=== PATIENT | female | born 1945 | race Caucasian/White ===

== ENCOUNTER 2020-04-14 20:11 | Inpatient (IN) | payer OTHER, SELFPAY ==
[~2020-04-14] VITALS: Ht 162.6 cm; Wt 63.5 kg
[2020-04-14 20:11] VITALS: BP_SYST 161
[2020-04-14] MEDS ORDERED: cefTRIAXone 1 GM IVPB PREMIX 50 ML IV ONE (20:30)
[2020-04-14] MEDS ORDERED: AZITHROMYCIN 500 MG in NS 250 ML IV ONE (20:30)
[2020-04-14] MEDS ORDERED: DEXAMETHASONE SOD PHOSPHATE 10 MG/ML VIAL IM ONE (20:30)
[2020-04-14] MEDS ORDERED: IPRATROPIUM/ALBUTEROL SULFATE 3 ML AMPUL.NEB (DUONEB) INH ONE (20:30)
[2020-04-14 20:50] LABS: BASOPHILS % (AUTO) 0.1 % (0.0-2.0); EOSINOPHILS % (AUTO) 0.2 % (0.0-4.0); HEMATOCRIT 41.3 % (36-48); HEMOGLOBIN 13.8 g/dL (12.0-16.0); LYMPHOCYTES # (AUTO) 1.4 K/uL (1.0-5.5); LYMPHOCYTES % (AUTO) 12.3 % (20.5-51.5); MEAN CORPUSCULAR HEMOGLOBIN 30 pg (27-31); MEAN CORPUSCULAR HGB CONC 33 % (32-36); MEAN CORPUSCULAR VOLUME 89 fL (79.0-98.0); MONOCYTES # (AUTO) 0.9 K/uL (0.0-1.0); MONOCYTES % (AUTO) 8.1 % (1.7-9.3); NEUTROPHILS # (AUTO) 8.9 K/uL (1.8-7.7); NEUTROPHILS % (AUTO) 79.3 % (40.0-70.0); PLATELET COUNT (AUTO) 532 K/uL (130-430); RED BLOOD CELL COUNT(AUTO) 4.66 MIL/uL (4.2-6.2); RED CELL DISTRIBUTION WIDTH 13.7 % (9.0-15.0); WHITE BLOOD COUNT (AUTO) 11.3 K/uL (4.8-10.8)
[2020-04-14] MEDS ORDERED: AZITHROMYCIN 500 MG/VIAL (ZITHROMAX) IV ONE (20:54)
[2020-04-14 20:59] LABS: ANION GAP 12 (5-15); CALCIUM 9.7 mg/dL (8.4-11.0); CHLORIDE 98 mmol/L (98-107); CREATININE 0.89 mg/dL (0.55-1.30); GLUCOSE 290 mg/dL (70-99); POTASSIUM 4.2 mmol/L (3.5-5.1); SODIUM SERUM 136 mmol/L (136-145); UREA NITROGEN, BLOOD 20 mg/dL (8-21)
[2020-04-14 21:05] LABS: FIBRINOGEN > 800 mg/dL (200-400)
[2020-04-14 21:10] LABS: ALANINE AMINOTRANSFERASE 563 U/L (12-78); ALBUMIN 2.5 g/dL (3.4-4.8); ASPARTATE AMINOTRANSFERASE 79 U/L (10-37); LACTATE DEHYDROGENASE 510 U/L (81-234); TOTAL BILIRUBIN 0.9 mg/dL (0.0-1.0)
[2020-04-14] MEDS ORDERED: NACL 0.9% 1,000 ML IV ONE (21:15)
[2020-04-14] MEDS ORDERED: DEXAMETHASONE SOD PHOSPHATE 10 MG/ML VIAL ONE (21:35)
[2020-04-14 21:36] LABS: C-REACTIVE PROTEIN QUANT 21.5 mg/dL (0-0.5)
[2020-04-14] MEDS ORDERED: METOPROLOL TARTRATE 5 MG/5 ML VIAL ONE (21:51)
[2020-04-14] MEDS ORDERED: IOHEXOL 350 mgI/mL, 150 ML INFUS..BTL IV ONE (21:52)
[2020-04-14] MEDS ORDERED: METOPROLOL TARTRATE 5 MG/5 ML VIAL IVP ONE (22:00)
[2020-04-14] MEDS ORDERED: KCL 20 mEq in 0.45% NS 1000 mL 1,000 ML IV ONE (23:57)
[2020-04-15] VITALS (22 sets, daily range): BP systolic 109–182
[2020-04-15] MEDS: KCL 20 mEq in 0.45% NS 1000 mL 1,000 ML IV SCH ×3 (00:05→23:40)
[2020-04-15] MEDS: DEXAMETHASONE SOD PHOSPHATE 10 MG/ML VIAL IVP SCH (00:30)
[2020-04-15] MEDS: INSULIN REGULAR, HUMAN 100 UNITS/ML, 10 ML VIAL (humuLIN R) SUBCUT PRN ×3 (01:19→18:37)
[2020-04-15] MEDS ORDERED: ENOXAPARIN SODIUM 40 MG/0.4 ML SYRINGE ONE (01:26)
[2020-04-15] MEDS: ENOXAPARIN SODIUM 40 MG/0.4 ML SYRINGE SUBCUT SCH ×3 (01:28→20:27)
[2020-04-15] MEDS ORDERED: cloNIDine HCL 0.1 MG TABLET PO PRN (01:30)
[2020-04-15] MEDS ORDERED: cloNIDine HCL 0.1 MG TABLET ONE (01:38)
[2020-04-15] MEDS: amLODIPine BESYLATE 10 MG TABLET PO SCH ×2 (01:38→09:00)
[2020-04-15] MEDS ORDERED: amLODIPine BESYLATE 10 MG TABLET ONE (01:39)
[2020-04-15] MEDS ORDERED: LORazepam 2 MG/ML VIAL ONE (03:19)
[2020-04-15] MEDS: LORazepam 2 MG/ML VIAL IVP PRN ×2 (07:41→21:53)
[2020-04-15] MEDS: CHOLECALCIFEROL (VITAMIN D3) 5,000 UNIT TABLET PO SCH (09:00)
[2020-04-15] MEDS: FAMOTIDINE 20 MG TABLET PO SCH ×2 (09:00→20:25)
[2020-04-15] MEDS: ASCORBIC ACID 500 MG TABLET PO SCH ×2 (09:00→20:23)
[2020-04-15 17:36] LABS: BASOPHILS % (AUTO) 0.1 % (0.0-2.0); HEMATOCRIT 35.4 % (36-48); HEMOGLOBIN 11.4 g/dL (12.0-16.0); LYMPHOCYTES % (AUTO) 7.2 % (20.5-51.5); MEAN CORPUSCULAR HEMOGLOBIN 29 pg (27-31); MEAN CORPUSCULAR HGB CONC 32 % (32-36); MEAN CORPUSCULAR VOLUME 89 fL (79.0-98.0); MONOCYTES # (AUTO) 1.8 K/uL (0.0-1.0); MONOCYTES % (AUTO) 12.1 % (1.7-9.3); NEUTROPHILS # (AUTO) 11.7 K/uL (1.8-7.7); NEUTROPHILS % (AUTO) 80.6 % (40.0-70.0); PLATELET COUNT (AUTO) 499 K/uL (130-430); RED BLOOD CELL COUNT(AUTO) 3.98 MIL/uL (4.2-6.2); RED CELL DISTRIBUTION WIDTH 13.4 % (9.0-15.0); WHITE BLOOD COUNT (AUTO) 14.5 K/uL (4.8-10.8)
[2020-04-15 18:02] LABS: ANION GAP 20 (5-15); CALCIUM 8.3 mg/dL (8.4-11.0); CHLORIDE 98 mmol/L (98-107); CREATININE 0.77 mg/dL (0.55-1.30); GLUCOSE 270 mg/dL (70-99); SODIUM SERUM 137 mmol/L (136-145); UREA NITROGEN, BLOOD 27 mg/dL (8-21)
[2020-04-15 18:08] LABS: ALANINE AMINOTRANSFERASE 387 U/L (12-78); ALBUMIN 2.2 g/dL (3.4-4.8); ASPARTATE AMINOTRANSFERASE 52 U/L (10-37); TOTAL BILIRUBIN 0.8 mg/dL (0.0-1.0)
[2020-04-15] MEDS: cefTRIAXone 1 GM in D5W 50 ML IV SCH (20:36)
[2020-04-15] MEDS: AZITHROMYCIN 500 MG in NS 250 ML IV SCH (21:45)
[2020-04-16] VITALS (23 sets, daily range): BP systolic 109–165
[2020-04-16] MEDS: INSULIN REGULAR, HUMAN 100 UNITS/ML, 10 ML VIAL (humuLIN R) SUBCUT PRN ×5 (00:31→23:31)
[2020-04-16] MEDS: DEXAMETHASONE SOD PHOSPHATE 10 MG/ML VIAL IVP SCH ×2 (00:50→23:31)
[2020-04-16] MEDS: LORazepam 2 MG/ML VIAL IVP PRN ×3 (05:34→22:57)
[2020-04-16 06:50] LABS: BASOPHILS % (AUTO) 0.1 % (0.0-2.0); EOSINOPHILS % (AUTO) 0.1 % (0.0-4.0); HEMATOCRIT 36.1 % (36-48); LYMPHOCYTES % (AUTO) 6.5 % (20.5-51.5); MEAN CORPUSCULAR HEMOGLOBIN 29 pg (27-31); MEAN CORPUSCULAR HGB CONC 33 % (32-36); MEAN CORPUSCULAR VOLUME 88 fL (79.0-98.0); MONOCYTES # (AUTO) 1.5 K/uL (0.0-1.0); MONOCYTES % (AUTO) 9.8 % (1.7-9.3); NEUTROPHILS # (AUTO) 12.9 K/uL (1.8-7.7); NEUTROPHILS % (AUTO) 83.5 % (40.0-70.0); PLATELET COUNT (AUTO) 507 K/uL (130-430); RED BLOOD CELL COUNT(AUTO) 4.08 MIL/uL (4.2-6.2); RED CELL DISTRIBUTION WIDTH 13.4 % (9.0-15.0); WHITE BLOOD COUNT (AUTO) 15.4 K/uL (4.8-10.8)
[2020-04-16 07:12] LABS: ANION GAP 12 (5-15); CALCIUM 8.7 mg/dL (8.4-11.0); CHLORIDE 101 mmol/L (98-107); CREATININE 0.74 mg/dL (0.55-1.30); GLUCOSE 163 mg/dL (70-99); SODIUM SERUM 137 mmol/L (136-145); UREA NITROGEN, BLOOD 20 mg/dL (8-21)
[2020-04-16] MEDS: FAMOTIDINE 20 MG TABLET PO SCH ×2 (09:34→20:47)
[2020-04-16] MEDS: KCL 20 mEq in 0.45% NS 1000 mL 1,000 ML IV SCH ×2 (09:34→20:30)
[2020-04-16] MEDS: amLODIPine BESYLATE 10 MG TABLET PO SCH (09:35)
[2020-04-16] MEDS: ASCORBIC ACID 500 MG TABLET PO SCH ×2 (09:35→20:47)
[2020-04-16] MEDS: CHOLECALCIFEROL (VITAMIN D3) 5,000 UNIT TABLET PO SCH (09:37)
[2020-04-16] MEDS: ENOXAPARIN SODIUM 40 MG/0.4 ML SYRINGE SUBCUT SCH ×2 (09:40→20:48)
[2020-04-16] MEDS: AZITHROMYCIN 500 MG in NS 250 ML IV SCH (21:00)
[2020-04-16] MEDS: cefTRIAXone 1 GM in D5W 50 ML IV SCH (21:00)
[2020-04-16] MEDS ORDERED: AZITHROMYCIN 500 MG/VIAL (ZITHROMAX) IV ONE (21:12)
[2020-04-16] MEDS ORDERED: cefTRIAXone 1 GM IVPB PREMIX 50 ML IV ONE (21:12)
[2020-04-17] VITALS (22 sets, daily range): BP systolic 124–153
[2020-04-17] MEDS: KCL 20 mEq in 0.45% NS 1000 mL 1,000 ML IV SCH ×3 (00:16→20:45)
[2020-04-17] MEDS: INSULIN REGULAR, HUMAN 100 UNITS/ML, 10 ML VIAL (humuLIN R) SUBCUT PRN ×4 (05:21→23:21)
[2020-04-17 06:44] LABS: HEMATOCRIT 33.8 % (36-48); HEMOGLOBIN 11.2 g/dL (12.0-16.0); LYMPHOCYTES # (AUTO) 0.4 K/uL (1.0-5.5); LYMPHOCYTES % (AUTO) 2.9 % (20.5-51.5); MEAN CORPUSCULAR HEMOGLOBIN 29 pg (27-31); MEAN CORPUSCULAR HGB CONC 33 % (32-36); MEAN CORPUSCULAR VOLUME 88 fL (79.0-98.0); MONOCYTES # (AUTO) 0.7 K/uL (0.0-1.0); MONOCYTES % (AUTO) 5.4 % (1.7-9.3); NEUTROPHILS # (AUTO) 11.6 K/uL (1.8-7.7); NEUTROPHILS % (AUTO) 91.7 % (40.0-70.0); PLATELET COUNT (AUTO) 508 K/uL (130-430); RED BLOOD CELL COUNT(AUTO) 3.85 MIL/uL (4.2-6.2); RED CELL DISTRIBUTION WIDTH 13.4 % (9.0-15.0); WHITE BLOOD COUNT (AUTO) 12.7 K/uL (4.8-10.8)
[2020-04-17 07:11] LABS: ALANINE AMINOTRANSFERASE 239 U/L (12-78); ANION GAP 14 (5-15); ASPARTATE AMINOTRANSFERASE 50 U/L (10-37); CHLORIDE 103 mmol/L (98-107); CREATININE 0.57 mg/dL (0.55-1.30); GLUCOSE 180 mg/dL (70-99); POTASSIUM 4.1 mmol/L (3.5-5.1); SODIUM SERUM 138 mmol/L (136-145); TOTAL BILIRUBIN 0.5 mg/dL (0.0-1.0); UREA NITROGEN, BLOOD 14 mg/dL (8-21)
[2020-04-17] MEDS: amLODIPine BESYLATE 10 MG TABLET PO SCH (09:32)
[2020-04-17] MEDS: ASCORBIC ACID 500 MG TABLET PO SCH ×2 (09:32→20:45)
[2020-04-17] MEDS: CHOLECALCIFEROL (VITAMIN D3) 5,000 UNIT TABLET PO SCH (09:32)
[2020-04-17] MEDS: FAMOTIDINE 20 MG TABLET PO SCH ×2 (09:33→20:45)
[2020-04-17] MEDS: ENOXAPARIN SODIUM 40 MG/0.4 ML SYRINGE SUBCUT SCH ×2 (10:35→20:46)
[2020-04-17] MEDS ORDERED: IVERMECTIN 3 MG TABLET PO ONE (12:00)
[2020-04-17] MEDS: AZITHROMYCIN 500 MG in NS 250 ML IV SCH (20:43)
[2020-04-17] MEDS: cefTRIAXone 1 GM in D5W 50 ML IV SCH (20:43)
[2020-04-17] MEDS: LORazepam 2 MG/ML VIAL IVP PRN (22:31)
[2020-04-17] MEDS: DEXAMETHASONE SOD PHOSPHATE 10 MG/ML VIAL IVP SCH (23:20)
[2020-04-18] VITALS (18 sets, daily range): BP systolic 122–164
[2020-04-18] MEDS: ASCORBIC ACID 500 MG TABLET PO SCH ×2 (08:16→20:18)
[2020-04-18] MEDS: CHOLECALCIFEROL (VITAMIN D3) 5,000 UNIT TABLET PO SCH (08:16)
[2020-04-18] MEDS: amLODIPine BESYLATE 10 MG TABLET PO SCH (08:16)
[2020-04-18] MEDS: FAMOTIDINE 20 MG TABLET PO SCH ×2 (08:16→20:18)
[2020-04-18] MEDS: ENOXAPARIN SODIUM 40 MG/0.4 ML SYRINGE SUBCUT SCH ×2 (08:17→20:19)
[2020-04-18] MEDS: INSULIN REGULAR, HUMAN 100 UNITS/ML, 10 ML VIAL (humuLIN R) SUBCUT PRN ×3 (11:31→23:26)
[2020-04-18] MEDS ORDERED: IVERMECTIN 3 MG TABLET PO ONE (14:00)
[2020-04-18] MEDS: KCL 20 mEq in 0.45% NS 1000 mL 1,000 ML IV SCH ×2 (14:59→18:30)
[2020-04-18] MEDS: AZITHROMYCIN 500 MG in NS 250 ML IV SCH (20:18)
[2020-04-18] MEDS: cefTRIAXone 1 GM in D5W 50 ML IV SCH (20:18)
[2020-04-18] MEDS: DEXAMETHASONE SOD PHOSPHATE 10 MG/ML VIAL IVP SCH (23:24)
[2020-04-19] VITALS (21 sets, daily range): BP systolic 117–162
[2020-04-19] MEDS: LORazepam 2 MG/ML VIAL IVP PRN ×2 (03:53→21:00)
[2020-04-19] MEDS: KCL 20 mEq in 0.45% NS 1000 mL 1,000 ML IV SCH ×3 (03:53→23:03)
[2020-04-19] MEDS: FAMOTIDINE 20 MG TABLET PO SCH ×2 (08:49→20:22)
[2020-04-19] MEDS: CHOLECALCIFEROL (VITAMIN D3) 5,000 UNIT TABLET PO SCH (08:49)
[2020-04-19] MEDS: amLODIPine BESYLATE 10 MG TABLET PO SCH (08:49)
[2020-04-19] MEDS: ASCORBIC ACID 500 MG TABLET PO SCH ×2 (08:49→20:22)
[2020-04-19] MEDS: ENOXAPARIN SODIUM 40 MG/0.4 ML SYRINGE SUBCUT SCH ×2 (09:00→20:23)
[2020-04-19] MEDS: INSULIN REGULAR, HUMAN 100 UNITS/ML, 10 ML VIAL (humuLIN R) SUBCUT PRN ×2 (11:58→23:04)
[2020-04-19] MEDS: cefTRIAXone 1 GM in D5W 50 ML IV SCH (20:22)
[2020-04-19] MEDS: AZITHROMYCIN 500 MG in NS 250 ML IV SCH (20:22)
[2020-04-19] MEDS ORDERED: *TPN PER PHARMACY XX PRN (21:00)
[2020-04-19 21:46] LABS: INR 1.1 (0.8-1.2); PROTHROMBIN TIME 11.1 SECS (9.5-12.5)
[2020-04-20] VITALS (25 sets, daily range): BP systolic 111–150
[2020-04-20] MEDS: DEXAMETHASONE SOD PHOSPHATE 10 MG/ML VIAL IVP SCH (00:30)
[2020-04-20] MEDS: LORazepam 2 MG/ML VIAL IVP PRN ×5 (01:00→22:15)
[2020-04-20] MEDS: INSULIN REGULAR, HUMAN 100 UNITS/ML, 10 ML VIAL (humuLIN R) SUBCUT PRN ×2 (05:25→23:19)
[2020-04-20 06:34] LABS: BASOPHILS % (AUTO) 0.2 % (0.0-2.0); HEMATOCRIT 34.4 % (36-48); HEMOGLOBIN 11.5 g/dL (12.0-16.0); LYMPHOCYTES # (AUTO) 0.4 K/uL (1.0-5.5); LYMPHOCYTES % (AUTO) 1.9 % (20.5-51.5); MEAN CORPUSCULAR HEMOGLOBIN 29 pg (27-31); MEAN CORPUSCULAR HGB CONC 34 % (32-36); MEAN CORPUSCULAR VOLUME 87 fL (79.0-98.0); MONOCYTES # (AUTO) 1.5 K/uL (0.0-1.0); MONOCYTES % (AUTO) 7.4 % (1.7-9.3); NEUTROPHILS # (AUTO) 17.7 K/uL (1.8-7.7); NEUTROPHILS % (AUTO) 90.5 % (40.0-70.0); PLATELET COUNT (AUTO) 648 K/uL (130-430); RED BLOOD CELL COUNT(AUTO) 3.96 MIL/uL (4.2-6.2); RED CELL DISTRIBUTION WIDTH 13.4 % (9.0-15.0); WHITE BLOOD COUNT (AUTO) 19.6 K/uL (4.8-10.8)
[2020-04-20 06:46] LABS: ALANINE AMINOTRANSFERASE 167 U/L (12-78); ALBUMIN 2.2 g/dL (3.4-4.8); ANION GAP 12 (5-15); ASPARTATE AMINOTRANSFERASE 50 U/L (10-37); CALCIUM 8.2 mg/dL (8.4-11.0); CHLORIDE 104 mmol/L (98-107); CREATININE 0.65 mg/dL (0.55-1.30); GLUCOSE 189 mg/dL (70-99); POTASSIUM 4.6 mmol/L (3.5-5.1); SODIUM SERUM 139 mmol/L (136-145); TOTAL BILIRUBIN 0.7 mg/dL (0.0-1.0); UREA NITROGEN, BLOOD 11 mg/dL (8-21)
[2020-04-20] MEDS: FAMOTIDINE 20 MG TABLET PO SCH ×2 (09:00→20:07)
[2020-04-20] MEDS: CHOLECALCIFEROL (VITAMIN D3) 5,000 UNIT TABLET PO SCH (09:00)
[2020-04-20] MEDS: amLODIPine BESYLATE 10 MG TABLET PO SCH (09:00)
[2020-04-20] MEDS: ASCORBIC ACID 500 MG TABLET PO SCH ×2 (09:00→20:07)
[2020-04-20] MEDS: KCL 20 mEq in 0.45% NS 1000 mL 1,000 ML IV SCH ×2 (09:04→20:06)
[2020-04-20] MEDS: ENOXAPARIN SODIUM 40 MG/0.4 ML SYRINGE SUBCUT SCH ×2 (09:16→20:08)
[2020-04-20 09:18] LABS: TRIGLYCERIDES 115 mg/dL (30-150)
[2020-04-20] MEDS ORDERED: IVERMECTIN 3 MG TABLET PO ONE ×2 (12:15→18:00)
[2020-04-20] MEDS ORDERED: BARICITINIB -Non-Formulary 2 MG TABLET PO SCH (13:00)
[2020-04-20] MEDS ORDERED: BARICITINIB -Non-Formulary 2 MG TABLET PO ONE (18:00)
[2020-04-20] MEDS: FAT EMULSIONS 250 ML IV SCH (19:58)
[2020-04-20] MEDS: cefTRIAXone 1 GM in D5W 50 ML IV SCH (20:07)
[2020-04-20] MEDS: methylPREDNISolone SOD SUCC 40 MG/ML VIAL IVP SCH (20:07)
[2020-04-20] MEDS ORDERED: NA PHOS IV SCH ×9 (21:00)
[2020-04-20] MEDS ORDERED: TPN CENTRAL IV SCH ×9 (21:00)
[2020-04-20] MEDS ORDERED: [UNRECOGNIZED DRUG - OTHER] IV SCH ×9 (21:00)
[2020-04-20] MEDS ORDERED: POTASSIUM ACETATE IV SCH ×9 (21:00)
[2020-04-21] VITALS (24 sets, daily range): BP systolic 112–182
[2020-04-21] MEDS: LORazepam 2 MG/ML VIAL IVP PRN ×2 (02:15→22:37)
[2020-04-21] MEDS: INSULIN REGULAR, HUMAN 100 UNITS/ML, 10 ML VIAL (humuLIN R) SUBCUT PRN ×3 (05:18→17:27)
[2020-04-21 07:11] LABS: ALANINE AMINOTRANSFERASE 136 U/L (12-78); ALBUMIN 2.3 g/dL (3.4-4.8); ANION GAP 12 (5-15); CALCIUM 8.2 mg/dL (8.4-11.0); CHLORIDE 102 mmol/L (98-107); CREATININE 0.66 mg/dL (0.55-1.30); GLUCOSE 309 mg/dL (70-99); PHOSPHORUS 1.7 mg/dL (2.7-4.5); POTASSIUM 3.9 mmol/L (3.5-5.1); SODIUM SERUM 138 mmol/L (136-145); TOTAL BILIRUBIN 0.5 mg/dL (0.0-1.0); UREA NITROGEN, BLOOD 14 mg/dL (8-21)
[2020-04-21 07:15] LABS: ASPARTATE AMINOTRANSFERASE 23 U/L (10-37)
[2020-04-21] MEDS: ASCORBIC ACID 500 MG TABLET PO SCH ×2 (08:55→20:55)
[2020-04-21] MEDS: FAMOTIDINE 20 MG TABLET PO SCH ×2 (08:55→20:55)
[2020-04-21] MEDS: amLODIPine BESYLATE 10 MG TABLET PO SCH (08:56)
[2020-04-21] MEDS: CHOLECALCIFEROL (VITAMIN D3) 5,000 UNIT TABLET PO SCH (08:56)
[2020-04-21] MEDS: methylPREDNISolone SOD SUCC 40 MG/ML VIAL IVP SCH ×2 (08:57→20:52)
[2020-04-21] MEDS: ENOXAPARIN SODIUM 40 MG/0.4 ML SYRINGE SUBCUT SCH ×2 (09:02→20:58)
[2020-04-21] MEDS: BARICITINIB -Non-Formulary 2 MG TABLET PO SCH (09:04)
[2020-04-21] MEDS ORDERED: IVERMECTIN 3 MG TABLET PO ONE (14:00)
[2020-04-21] MEDS: PIPERACILLIN/TAZO 4.5GM/DEX-IS 100 ML IV SCH ×2 (14:39→23:15)
[2020-04-21] MEDS: KCL 20 mEq in 0.45% NS 1000 mL 1,000 ML IV SCH (17:00)
[2020-04-21] MEDS ORDERED: [UNRECOGNIZED DRUG - OTHER] IV SCH ×11 (21:00)
[2020-04-21] MEDS ORDERED: NA PHOS IV SCH ×11 (21:00)
[2020-04-21] MEDS ORDERED: TPN CENTRAL IV SCH ×11 (21:00)
[2020-04-21] MEDS ORDERED: POTASSIUM ACETATE IV SCH ×11 (21:00)
[2020-04-21] MEDS: FAT EMULSIONS 250 ML IV SCH (21:13)
[2020-04-22] VITALS (24 sets, daily range): BP systolic 120–198
[2020-04-22] MEDS: DILTIAZEM HCL 25 MG/5 ML VIAL IVP PRN ×4 (00:02→20:09)
[2020-04-22] MEDS: PIPERACILLIN/TAZO 4.5GM/DEX-IS 100 ML IV SCH ×3 (06:20→22:03)
[2020-04-22 06:40] LABS: BASOPHILS # (AUTO) 0.1 K/uL (0.0-0.2); BASOPHILS % (AUTO) 0.2 % (0.0-2.0); HEMATOCRIT 39.1 % (36-48); HEMOGLOBIN 13.1 g/dL (12.0-16.0); LYMPHOCYTES # (AUTO) 0.3 K/uL (1.0-5.5); LYMPHOCYTES % (AUTO) 1.2 % (20.5-51.5); MEAN CORPUSCULAR HEMOGLOBIN 29 pg (27-31); MEAN CORPUSCULAR HGB CONC 34 % (32-36); MEAN CORPUSCULAR VOLUME 88 fL (79.0-98.0); MONOCYTES % (AUTO) 10.8 % (1.7-9.3); NEUTROPHILS % (AUTO) 87.8 % (40.0-70.0); PLATELET COUNT (AUTO) 653 K/uL (130-430); RED BLOOD CELL COUNT(AUTO) 4.46 MIL/uL (4.2-6.2); RED CELL DISTRIBUTION WIDTH 13.8 % (9.0-15.0); WHITE BLOOD COUNT (AUTO) 27.4 K/uL (4.8-10.8)
[2020-04-22] MEDS: INSULIN REGULAR, HUMAN 100 UNITS/ML, 10 ML VIAL (humuLIN R) SUBCUT PRN ×5 (06:40→23:13)
[2020-04-22] MEDS: LORazepam 2 MG/ML VIAL IVP PRN ×4 (08:03→23:57)
[2020-04-22 08:28] LABS: ALANINE AMINOTRANSFERASE 130 U/L (12-78); ALBUMIN 2.5 g/dL (3.4-4.8); ANION GAP 14 (5-15); ASPARTATE AMINOTRANSFERASE 25 U/L (10-37); CHLORIDE 103 mmol/L (98-107); CREATININE 0.83 mg/dL (0.55-1.30); GLUCOSE 376 mg/dL (70-99); POTASSIUM 3.8 mmol/L (3.5-5.1); SODIUM SERUM 141 mmol/L (136-145); TOTAL BILIRUBIN 0.7 mg/dL (0.0-1.0); UREA NITROGEN, BLOOD 14 mg/dL (8-21)
[2020-04-22 08:55] LABS: TRIGLYCERIDES 155 mg/dL (30-150)
[2020-04-22] MEDS: ASCORBIC ACID 500 MG TABLET PO SCH ×2 (09:00→21:00)
[2020-04-22] MEDS: CHOLECALCIFEROL (VITAMIN D3) 5,000 UNIT TABLET PO SCH (09:00)
[2020-04-22] MEDS: BARICITINIB -Non-Formulary 2 MG TABLET PO SCH (09:00)
[2020-04-22] MEDS: FAMOTIDINE 20 MG TABLET PO SCH ×2 (09:00→21:00)
[2020-04-22] MEDS: amLODIPine BESYLATE 10 MG TABLET PO SCH (09:00)
[2020-04-22] MEDS: methylPREDNISolone SOD SUCC 40 MG/ML VIAL IVP SCH ×2 (09:45→21:02)
[2020-04-22] MEDS: ENOXAPARIN SODIUM 40 MG/0.4 ML SYRINGE SUBCUT SCH ×2 (09:45→20:59)
[2020-04-22] MEDS: KCL 20 mEq in 0.45% NS 1000 mL 1,000 ML IV SCH (13:09)
[2020-04-22] MEDS ORDERED: COMMUNICATION ORDER XX ONE (14:00)
[2020-04-22] MEDS: hydrALAZINE HCL 20 MG/ML VIAL IVP PRN ×2 (14:55→23:09)
[2020-04-22] MEDS ORDERED: INSULIN REGULAR, HUMAN 100 UNITS/ML, 10 ML VIAL IV ONE (17:30)
[2020-04-22] MEDS: INSULIN GLARGINE 100 UNITS/ML 10 ML VIAL SUBCUT SCH (20:36)
[2020-04-22] MEDS: FAT EMULSIONS 250 ML IV SCH ×2 (20:54→23:24)
[2020-04-22] MEDS ORDERED: NA PHOS IV SCH ×10 (21:00)
[2020-04-22] MEDS ORDERED: [UNRECOGNIZED DRUG - OTHER] IV SCH ×10 (21:00)
[2020-04-22] MEDS ORDERED: TPN CENTRAL IV SCH ×10 (21:00)
[2020-04-22] MEDS ORDERED: POTASSIUM ACETATE IV SCH ×10 (21:00)
[2020-04-22] MEDS ORDERED: PIPERACILLIN/TAZOBACTAM 4.5 GM/VIAL (ZOSYN) IV ONE (21:27)
[2020-04-23] VITALS (25 sets, daily range): BP systolic 102–192
[2020-04-23] MEDS: DILTIAZEM HCL 25 MG/5 ML VIAL IVP PRN ×2 (02:31→16:44)
[2020-04-23 04:43] LABS: ALANINE AMINOTRANSFERASE 90 U/L (12-78); ALBUMIN 2.3 g/dL (3.4-4.8); ANION GAP 12 (5-15); ASPARTATE AMINOTRANSFERASE 18 U/L (10-37); CALCIUM 9.2 mg/dL (8.4-11.0); CHLORIDE 106 mmol/L (98-107); CREATININE 0.83 mg/dL (0.55-1.30); PHOSPHORUS 2.5 mg/dL (2.7-4.5); POTASSIUM 3.6 mmol/L (3.5-5.1); SODIUM SERUM 145 mmol/L (136-145); TOTAL BILIRUBIN 0.5 mg/dL (0.0-1.0); UREA NITROGEN, BLOOD 21 mg/dL (8-21)
[2020-04-23 04:46] LABS: GLUCOSE 457 mg/dL (70-99)
[2020-04-23] MEDS: INSULIN REGULAR, HUMAN 100 UNITS/ML, 10 ML VIAL (humuLIN R) SUBCUT PRN ×4 (05:33→23:29)
[2020-04-23] MEDS: PIPERACILLIN/TAZO 4.5GM/DEX-IS 100 ML IV SCH ×3 (05:44→21:01)
[2020-04-23] MEDS: KCL 20 mEq in 0.45% NS 1000 mL 1,000 ML IV SCH (05:45)
[2020-04-23] MEDS: hydrALAZINE HCL 20 MG/ML VIAL IVP PRN ×3 (06:06→19:52)
[2020-04-23] MEDS ORDERED: INSULIN REGULAR, HUMAN 100 UNITS/ML, 10 ML VIAL IVP ONE (07:15)
[2020-04-23] MEDS ORDERED: INSULIN REGULAR, HUMAN 100 UNITS/ML, 10 ML VIAL IVP PRN (07:30)
[2020-04-23] MEDS: ASCORBIC ACID 500 MG TABLET PO SCH ×2 (09:11→20:34)
[2020-04-23] MEDS: methylPREDNISolone SOD SUCC 40 MG/ML VIAL IVP SCH ×2 (09:11→20:48)
[2020-04-23] MEDS: CHOLECALCIFEROL (VITAMIN D3) 5,000 UNIT TABLET PO SCH (09:13)
[2020-04-23] MEDS: FAMOTIDINE 20 MG TABLET PO SCH ×2 (09:13→20:34)
[2020-04-23] MEDS: amLODIPine BESYLATE 10 MG TABLET PO SCH (09:13)
[2020-04-23] MEDS: ENOXAPARIN SODIUM 40 MG/0.4 ML SYRINGE SUBCUT SCH ×2 (09:16→20:54)
[2020-04-23] MEDS: BARICITINIB -Non-Formulary 2 MG TABLET PO SCH (09:17)
[2020-04-23] MEDS: INSULIN GLARGINE 100 UNITS/ML 10 ML VIAL SUBCUT SCH ×2 (09:23→20:54)
[2020-04-23] MEDS: LORazepam 2 MG/ML VIAL IVP PRN ×2 (16:31→19:52)
[2020-04-23] MEDS: QUEtiapine FUMARATE 25 MG TABLET PO SCH ×2 (19:02→20:34)
[2020-04-23] MEDS ORDERED: DILTIAZEM HCL 125 MG/25 ML VIAL IV ONE (19:22)
[2020-04-23] MEDS: FAT EMULSIONS 250 ML IV SCH (20:55)
[2020-04-23] MEDS ORDERED: [UNRECOGNIZED DRUG - OTHER] IV SCH ×8 (21:00)
[2020-04-23] MEDS ORDERED: INSULIN REGULAR IV SCH ×8 (21:00)
[2020-04-23] MEDS ORDERED: TPN CENTRAL IV SCH ×8 (21:00)
[2020-04-23] MEDS ORDERED: TRACE ELEMENTS IV SCH ×8 (21:00)
[2020-04-23] MEDS ORDERED: K PHOS IV SCH ×8 (21:00)
[2020-04-24] VITALS (24 sets, daily range): BP systolic 93–148
[2020-04-24] MEDS: LORazepam 2 MG/ML VIAL IVP PRN ×4 (00:07→21:29)
[2020-04-24] MEDS ORDERED: DILTIAZEM HCL 25 MG/5 ML VIAL ONE (01:25)
[2020-04-24] MEDS: KCL 20 mEq in 0.45% NS 1000 mL 1,000 ML IV SCH (04:11)
[2020-04-24] MEDS: PIPERACILLIN/TAZO 4.5GM/DEX-IS 100 ML IV SCH ×3 (05:07→21:29)
[2020-04-24] MEDS: INSULIN REGULAR, HUMAN 100 UNITS/ML, 10 ML VIAL (humuLIN R) SUBCUT PRN ×4 (06:46→23:56)
[2020-04-24 06:58] LABS: BASOPHILS # (AUTO) 0.1 K/uL (0.0-0.2); BASOPHILS % (AUTO) 0.2 % (0.0-2.0); HEMATOCRIT 37.7 % (36-48); HEMOGLOBIN 12.4 g/dL (12.0-16.0); LYMPHOCYTES # (AUTO) 0.3 K/uL (1.0-5.5); LYMPHOCYTES % (AUTO) 1.1 % (20.5-51.5); MEAN CORPUSCULAR HEMOGLOBIN 29 pg (27-31); MEAN CORPUSCULAR HGB CONC 33 % (32-36); MEAN CORPUSCULAR VOLUME 89 fL (79.0-98.0); MONOCYTES # (AUTO) 2.9 K/uL (0.0-1.0); MONOCYTES % (AUTO) 11.2 % (1.7-9.3); NEUTROPHILS # (AUTO) 22.5 K/uL (1.8-7.7); NEUTROPHILS % (AUTO) 87.5 % (40.0-70.0); PLATELET COUNT (AUTO) 503 K/uL (130-430); RED BLOOD CELL COUNT(AUTO) 4.26 MIL/uL (4.2-6.2); RED CELL DISTRIBUTION WIDTH 13.8 % (9.0-15.0); WHITE BLOOD COUNT (AUTO) 25.7 K/uL (4.8-10.8)
[2020-04-24 07:15] LABS: ALANINE AMINOTRANSFERASE 77 U/L (12-78); ANION GAP 14 (5-15); ASPARTATE AMINOTRANSFERASE 28 U/L (10-37); CALCIUM 8.9 mg/dL (8.4-11.0); CHLORIDE 115 mmol/L (98-107); CREATININE 1.02 mg/dL (0.55-1.30); GLUCOSE 344 mg/dL (70-99); PHOSPHORUS 3.7 mg/dL (2.7-4.5); POTASSIUM 3.8 mmol/L (3.5-5.1); SODIUM SERUM 153 mmol/L (136-145); TOTAL BILIRUBIN 0.5 mg/dL (0.0-1.0); UREA NITROGEN, BLOOD 45 mg/dL (8-21)
[2020-04-24] MEDS: FAMOTIDINE 20 MG TABLET PO SCH ×2 (08:47→20:54)
[2020-04-24] MEDS: ASCORBIC ACID 500 MG TABLET PO SCH ×2 (08:47→20:56)
[2020-04-24] MEDS: CHOLECALCIFEROL (VITAMIN D3) 5,000 UNIT TABLET PO SCH (08:48)
[2020-04-24] MEDS: methylPREDNISolone SOD SUCC 40 MG/ML VIAL IVP SCH ×2 (08:48→20:55)
[2020-04-24] MEDS: QUEtiapine FUMARATE 25 MG TABLET PO SCH ×2 (08:48→20:54)
[2020-04-24] MEDS: ENOXAPARIN SODIUM 40 MG/0.4 ML SYRINGE SUBCUT SCH ×2 (08:51→20:56)
[2020-04-24] MEDS: INSULIN GLARGINE 100 UNITS/ML 10 ML VIAL SUBCUT SCH ×2 (08:54→21:28)
[2020-04-24] MEDS: BARICITINIB -Non-Formulary 2 MG TABLET PO SCH (08:55)
[2020-04-24] MEDS: amLODIPine BESYLATE 10 MG TABLET PO SCH (08:57)
[2020-04-24] MEDS: MICAFUNGIN SODIUM 50 MG in NS 100 ML IV SCH (16:51)
[2020-04-24] MEDS: FAT EMULSIONS 250 ML IV SCH (20:51)
[2020-04-24] MEDS ORDERED: [UNRECOGNIZED DRUG - OTHER] IV SCH ×9 (21:00)
[2020-04-24] MEDS ORDERED: TPN CENTRAL IV SCH ×9 (21:00)
[2020-04-24] MEDS ORDERED: K PHOS IV SCH ×9 (21:00)
[2020-04-24] MEDS ORDERED: POTASSIUM ACETATE IV SCH ×9 (21:00)
[2020-04-25] VITALS (23 sets, daily range): BP systolic 118–154
[2020-04-25] MEDS: LORazepam 2 MG/ML VIAL IVP PRN ×3 (00:57→17:39)
[2020-04-25] MEDS: KCL 20 mEq in 0.45% NS 1000 mL 1,000 ML IV SCH ×2 (00:57→22:00)
[2020-04-25] MEDS: PIPERACILLIN/TAZO 4.5GM/DEX-IS 100 ML IV SCH ×3 (05:54→21:04)
[2020-04-25] MEDS: INSULIN REGULAR, HUMAN 100 UNITS/ML, 10 ML VIAL (humuLIN R) SUBCUT PRN ×3 (05:55→17:51)
[2020-04-25 06:34] LABS: HEMATOCRIT 38.1 % (36-48); HEMOGLOBIN 12.4 g/dL (12.0-16.0); MEAN CORPUSCULAR HEMOGLOBIN 29 pg (27-31); MEAN CORPUSCULAR HGB CONC 33 % (32-36); MEAN CORPUSCULAR VOLUME 89 fL (79.0-98.0); PLATELET COUNT (AUTO) 416 K/uL (130-430); RED CELL DISTRIBUTION WIDTH 13.9 % (9.0-15.0); WHITE BLOOD COUNT (AUTO) 24.1 K/uL (4.8-10.8)
[2020-04-25 06:43] LABS: ALANINE AMINOTRANSFERASE 91 U/L (12-78); ANION GAP 12 (5-15); ASPARTATE AMINOTRANSFERASE 39 U/L (10-37); CHLORIDE 113 mmol/L (98-107); CREATININE 0.75 mg/dL (0.55-1.30); GLUCOSE 217 mg/dL (70-99); PHOSPHORUS 3.7 mg/dL (2.7-4.5); POTASSIUM 3.6 mmol/L (3.5-5.1); SODIUM SERUM 149 mmol/L (136-145); TOTAL BILIRUBIN 0.5 mg/dL (0.0-1.0); UREA NITROGEN, BLOOD 46 mg/dL (8-21)
[2020-04-25] MEDS: CHOLECALCIFEROL (VITAMIN D3) 5,000 UNIT TABLET PO SCH (09:00)
[2020-04-25] MEDS: BARICITINIB -Non-Formulary 2 MG TABLET PO SCH (09:00)
[2020-04-25] MEDS: ASCORBIC ACID 500 MG TABLET PO SCH ×2 (09:00→21:01)
[2020-04-25] MEDS: amLODIPine BESYLATE 10 MG TABLET PO SCH (09:00)
[2020-04-25] MEDS: FAMOTIDINE 20 MG TABLET PO SCH ×2 (09:00→21:01)
[2020-04-25] MEDS: QUEtiapine FUMARATE 25 MG TABLET PO SCH ×2 (09:00→21:01)
[2020-04-25] MEDS: INSULIN GLARGINE 100 UNITS/ML 10 ML VIAL SUBCUT SCH ×2 (09:37→21:03)
[2020-04-25] MEDS: methylPREDNISolone SOD SUCC 40 MG/ML VIAL IVP SCH ×2 (09:38→21:01)
[2020-04-25] MEDS: ENOXAPARIN SODIUM 40 MG/0.4 ML SYRINGE SUBCUT SCH ×2 (09:38→21:04)
[2020-04-25 11:01] LABS: BAND % (MANUAL) 6 % (0-6); BASOPHILS % (MANUAL) 0 % (0-2); EOSINOPHILS % (MANUAL) 0 % (0-7); LYMPHOCYTES % (MANUAL) 1 % (20-46); MONOCYTES % (MANUAL) 6 % (0-11)
[2020-04-25] MEDS: MICAFUNGIN SODIUM 50 MG in NS 100 ML IV SCH (14:00)
[2020-04-25] MEDS: FAT EMULSIONS 250 ML IV SCH (20:59)
[2020-04-25] MEDS ORDERED: POTASSIUM ACETATE IV SCH ×9 (21:00)
[2020-04-25] MEDS ORDERED: TPN CENTRAL IV SCH ×9 (21:00)
[2020-04-25] MEDS ORDERED: K PHOS IV SCH ×9 (21:00)
[2020-04-25] MEDS ORDERED: SODIUM ACETATE IV SCH ×9 (21:00)
[2020-04-25] MEDS ORDERED: [UNRECOGNIZED DRUG - OTHER] IV SCH ×9 (21:00)
[2020-04-26] VITALS (24 sets, daily range): BP systolic 79–163
[2020-04-26] MEDS: LORazepam 2 MG/ML VIAL IVP PRN (00:19)
[2020-04-26] MEDS: INSULIN REGULAR, HUMAN 100 UNITS/ML, 10 ML VIAL (humuLIN R) SUBCUT PRN ×4 (00:21→23:26)
[2020-04-26] MEDS: PIPERACILLIN/TAZO 4.5GM/DEX-IS 100 ML IV SCH ×3 (06:13→21:15)
[2020-04-26] MEDS: hydrALAZINE HCL 20 MG/ML VIAL IVP PRN (06:32)
[2020-04-26 07:02] LABS: ALANINE AMINOTRANSFERASE 64 U/L (12-78); ALBUMIN 1.8 g/dL (3.4-4.8); ANION GAP 9 (5-15); ASPARTATE AMINOTRANSFERASE 22 U/L (10-37); CALCIUM 7.8 mg/dL (8.4-11.0); CHLORIDE 113 mmol/L (98-107); GLUCOSE 243 mg/dL (70-99); PHOSPHORUS 3.1 mg/dL (2.7-4.5); POTASSIUM 4.2 mmol/L (3.5-5.1); SODIUM SERUM 147 mmol/L (136-145); TOTAL BILIRUBIN 0.4 mg/dL (0.0-1.0); UREA NITROGEN, BLOOD 37 mg/dL (8-21)
[2020-04-26] MEDS: amLODIPine BESYLATE 10 MG TABLET PO SCH (08:15)
[2020-04-26] MEDS: BARICITINIB -Non-Formulary 2 MG TABLET PO SCH (08:15)
[2020-04-26] MEDS: QUEtiapine FUMARATE 25 MG TABLET PO SCH (08:16)
[2020-04-26] MEDS: CHOLECALCIFEROL (VITAMIN D3) 5,000 UNIT TABLET PO SCH (08:16)
[2020-04-26] MEDS: ASCORBIC ACID 500 MG TABLET PO SCH (08:16)
[2020-04-26] MEDS: FAMOTIDINE 20 MG TABLET PO SCH (08:16)
[2020-04-26] MEDS: methylPREDNISolone SOD SUCC 40 MG/ML VIAL IVP SCH ×2 (08:28→20:56)
[2020-04-26] MEDS: INSULIN GLARGINE 100 UNITS/ML 10 ML VIAL SUBCUT SCH ×2 (08:29→21:10)
[2020-04-26] MEDS: ENOXAPARIN SODIUM 40 MG/0.4 ML SYRINGE SUBCUT SCH ×2 (08:30→20:59)
[2020-04-26] MEDS: MICAFUNGIN SODIUM 50 MG in NS 100 ML IV SCH (14:09)
[2020-04-26] MEDS: KCL 20 mEq in 0.45% NS 1000 mL 1,000 ML IV SCH (17:18)
[2020-04-26] MEDS: FAT EMULSIONS 250 ML IV SCH (20:47)
[2020-04-26] MEDS ORDERED: POTASSIUM ACETATE IV SCH ×9 (21:00)
[2020-04-26] MEDS ORDERED: SODIUM ACETATE IV SCH ×9 (21:00)
[2020-04-26] MEDS ORDERED: TPN CENTRAL IV SCH ×9 (21:00)
[2020-04-26] MEDS ORDERED: K PHOS IV SCH ×9 (21:00)
[2020-04-26] MEDS ORDERED: [UNRECOGNIZED DRUG - OTHER] IV SCH ×9 (21:00)
[2020-04-26] MEDS ORDERED: NACL 0.9% 500 ML IV ONE (21:15)
[2020-04-26] MEDS ORDERED: NOREPINEPHRINE 4 MG/4 ML VIAL IV ONE (22:37)
[2020-04-26] MEDS: NOREPINEPHRINE BITARTRATE 4 MG in D5W 246 ML IV PRN (23:08)
[2020-04-26] MEDS ORDERED: INSULIN REGULAR, HUMAN 100 UNITS/ML, 10 ML VIAL SUBCUT ONE (23:30)
[2020-04-27] VITALS (29 sets, daily range): BP systolic 89–165
[2020-04-27] MEDS: KCL 20 mEq in 0.45% NS 1000 mL 1,000 ML IV SCH (00:24)
[2020-04-27] MEDS ORDERED: FUROSEMIDE 40 MG/4 ML VIAL ONE (00:57)
[2020-04-27] MEDS ORDERED: FUROSEMIDE 40 MG/4 ML VIAL IVP ONE ×2 (01:00→09:15)
[2020-04-27] MEDS: PIPERACILLIN/TAZO 4.5GM/DEX-IS 100 ML IV SCH ×3 (05:14→21:31)
[2020-04-27] MEDS: INSULIN REGULAR, HUMAN 100 UNITS/ML, 10 ML VIAL (humuLIN R) SUBCUT PRN ×4 (05:16→19:00)
[2020-04-27] MEDS ORDERED: NOREPINEPHRINE 4 MG/4 ML VIAL IV ONE (05:39)
[2020-04-27] MEDS: NOREPINEPHRINE BITARTRATE 4 MG in D5W 246 ML IV PRN (06:14)
[2020-04-27 06:19] LABS: ALBUMIN 1.7 g/dL (3.4-4.8); ANION GAP 9 (5-15); CHLORIDE 105 mmol/L (98-107); CREATININE 2.25 mg/dL (0.55-1.30); SODIUM SERUM 140 mmol/L (136-145); TOTAL BILIRUBIN 0.4 mg/dL (0.0-1.0); UREA NITROGEN, BLOOD 70 mg/dL (8-21)
[2020-04-27 08:15] LABS: ALANINE AMINOTRANSFERASE 69 U/L (12-78)
[2020-04-27 08:16] LABS: ASPARTATE AMINOTRANSFERASE 44 U/L (10-37)
[2020-04-27 08:18] LABS: GLUCOSE 425 mg/dL (70-99); POTASSIUM 6.4 mmol/L (3.5-5.1)
[2020-04-27] MEDS ORDERED: INSULIN REGULAR, HUMAN 100 UNITS/ML, 10 ML VIAL IVP ONE (09:00)
[2020-04-27] MEDS ORDERED: SODIUM BICARBONATE 8.4% JECT 50 MEQ/50 ML SYRINGE IVP ONE ×3 (09:15→16:15)
[2020-04-27] MEDS ORDERED: DEXTROSE 50% JECT 50 ML DISP.SYRIN IVP ONE (09:15)
[2020-04-27] MEDS ORDERED: SODIUM POLYSTYRENE SULFONATE 15 GM/60 ML UDBTL RC ONE (09:15)
[2020-04-27] MEDS: INSULIN GLARGINE 100 UNITS/ML 10 ML VIAL SUBCUT SCH ×2 (09:30→21:30)
[2020-04-27] MEDS: ENOXAPARIN SODIUM 40 MG/0.4 ML SYRINGE SUBCUT SCH (09:33)
[2020-04-27] MEDS: methylPREDNISolone SOD SUCC 40 MG/ML VIAL IVP SCH ×2 (09:53→21:29)
[2020-04-27] MEDS ORDERED: MORPHINE 2 MG/ML INJ. SYRINGE IVP ONE (10:30)
[2020-04-27] MEDS: LORazepam 2 MG/ML VIAL IVP PRN (12:17)
[2020-04-27] MEDS ORDERED: SODIUM BICARBONATE 8.4% JECT 50 MEQ/50 ML SYRINGE ONE (13:56)
[2020-04-27] MEDS ORDERED: CALCIUM CHLORIDE 1 GM/10 ML DISP.SYRIN (14 mEq Ca++/SYR) ONE (14:01)
[2020-04-27 14:11] LABS: ALANINE AMINOTRANSFERASE 76 U/L (12-78); ALBUMIN 1.6 g/dL (3.4-4.8); ANION GAP 16 (5-15); ASPARTATE AMINOTRANSFERASE 107 U/L (10-37); CHLORIDE 105 mmol/L (98-107); CREATININE 2.91 mg/dL (0.55-1.30); GLUCOSE 276 mg/dL (70-99); POTASSIUM 4.8 mmol/L (3.5-5.1); SODIUM SERUM 143 mmol/L (136-145); TOTAL BILIRUBIN 0.5 mg/dL (0.0-1.0); UREA NITROGEN, BLOOD 84 mg/dL (8-21)
[2020-04-27 14:20] LABS: CALCIUM 7.1 mg/dL (8.4-11.0)
[2020-04-27 14:21] LABS: CALCIUM 6.7 mg/dL (8.4-11.0)
[2020-04-27] MEDS ORDERED: NALOXONE HCL 0.4 MG/ML AMP (NARCAN) IVP PRN (14:30)
[2020-04-27] MEDS ORDERED: MORPHINE I.V. DRIP 100 ML IV PRN (14:30)
[2020-04-27] MEDS: PROPOFOL DRIP 100 ML IV PRN (14:36)
[2020-04-27] MEDS: MICAFUNGIN SODIUM 50 MG in NS 100 ML IV SCH (15:35)
[2020-04-27] MEDS: DILTIAZEM HCL 25 MG/5 ML VIAL IVP PRN (15:40)
[2020-04-27] MEDS ORDERED: INSULIN REGULAR, HUMAN 100 UNITS in NS 99 ML IV PRN ×2 (16:00)
[2020-04-27] MEDS ORDERED: SODIUM BICARBONATE 8.4% VIAL 50 MEQ/50 ML VIAL ONE (16:45)
[2020-04-27] MEDS: MORPHINE 2 MG/ML INJ. SYRINGE IVP PRN (16:48)
[2020-04-27] MEDS ORDERED: ETOMIDATE 20 MG/ 10 ML VIAL (AMIDATE) ONE (17:40)
[2020-04-27] MEDS ORDERED: ROCURONIUM BROMIDE 10 MG/ML (ZEMURON) ONE (17:40)
[2020-04-27] MEDS ORDERED: COMMUNICATION ORDER XX ONE (20:30)
[2020-04-27 20:47] LABS: ANION GAP 16 (5-15); CALCIUM 7.2 mg/dL (8.4-11.0); CHLORIDE 107 mmol/L (98-107); CREATININE 3.06 mg/dL (0.55-1.30); GLUCOSE 171 mg/dL (70-99); POTASSIUM 4.6 mmol/L (3.5-5.1); SODIUM SERUM 147 mmol/L (136-145); UREA NITROGEN, BLOOD 92 mg/dL (8-21)
[2020-04-27] MEDS ORDERED: INSULIN REGULAR IV SCH ×6 (21:00)
[2020-04-27] MEDS ORDERED: [UNRECOGNIZED DRUG - OTHER] IV SCH ×6 (21:00)
[2020-04-27] MEDS ORDERED: TRACE ELEMENTS IV SCH ×6 (21:00)
[2020-04-27] MEDS ORDERED: TPN CENTRAL IV SCH ×6 (21:00)
[2020-04-27] MEDS ORDERED: SODIUM ACETATE IV SCH ×6 (21:00)
[2020-04-27] MEDS: FAT EMULSIONS 250 ML IV SCH (21:28)
[2020-04-27] MEDS: PANTOPRAZOLE SODIUM 40 MG/VIAL (PROTONIX) IVP SCH (21:29)
[2020-04-27] MEDS: METOPROLOL TARTRATE 50 MG TABLET NG SCH (21:29)
[2020-04-28] VITALS (29 sets, daily range): BP systolic 111–160
[2020-04-28] MEDS: LORazepam 2 MG/ML VIAL IVP PRN (00:14)
[2020-04-28] MEDS: PROPOFOL DRIP 100 ML IV PRN ×3 (04:00→20:02)
[2020-04-28] MEDS: PIPERACILLIN/TAZO 4.5GM/DEX-IS 100 ML IV SCH ×3 (05:35→22:27)
[2020-04-28 05:41] LABS: ALANINE AMINOTRANSFERASE 60 U/L (12-78); ALBUMIN 1.4 g/dL (3.4-4.8); ANION GAP 15 (5-15); ASPARTATE AMINOTRANSFERASE 90 U/L (10-37); CHLORIDE 105 mmol/L (98-107); CREATININE 3.76 mg/dL (0.55-1.30); GLUCOSE 81 mg/dL (70-99); POTASSIUM 3.5 mmol/L (3.5-5.1); SODIUM SERUM 146 mmol/L (136-145); TOTAL BILIRUBIN 0.5 mg/dL (0.0-1.0)
[2020-04-28 05:44] LABS: CALCIUM 6.8 mg/dL (8.4-11.0); UREA NITROGEN, BLOOD 107 mg/dL (8-21)
[2020-04-28 06:00] LABS: BASOPHILS % (AUTO) 0.1 % (0.0-2.0); EOSINOPHILS % (AUTO) 0.1 % (0.0-4.0); HEMATOCRIT 29.2 % (36-48); HEMOGLOBIN 9.6 g/dL (12.0-16.0); LYMPHOCYTES # (AUTO) 0.3 K/uL (1.0-5.5); LYMPHOCYTES % (AUTO) 0.9 % (20.5-51.5); MEAN CORPUSCULAR HEMOGLOBIN 29 pg (27-31); MEAN CORPUSCULAR HGB CONC 33 % (32-36); MEAN CORPUSCULAR VOLUME 89 fL (79.0-98.0); MONOCYTES # (AUTO) 1.5 K/uL (0.0-1.0); MONOCYTES % (AUTO) 4.9 % (1.7-9.3); PLATELET COUNT (AUTO) 173 K/uL (130-430); RED BLOOD CELL COUNT(AUTO) 3.27 MIL/uL (4.2-6.2); RED CELL DISTRIBUTION WIDTH 14.4 % (9.0-15.0)
[2020-04-28 07:22] LABS: WHITE BLOOD COUNT (AUTO) 30.8 K/uL (4.8-10.8)
[2020-04-28 08:41] LABS: PHOSPHORUS 6.1 mg/dL (2.7-4.5)
[2020-04-28] MEDS: METOPROLOL TARTRATE 50 MG TABLET NG SCH ×2 (08:46→22:27)
[2020-04-28] MEDS: PANTOPRAZOLE SODIUM 40 MG/VIAL (PROTONIX) IVP SCH ×2 (08:47→22:27)
[2020-04-28] MEDS: methylPREDNISolone SOD SUCC 40 MG/ML VIAL IVP SCH ×2 (08:47→22:27)
[2020-04-28] MEDS: INSULIN GLARGINE 100 UNITS/ML 10 ML VIAL SUBCUT SCH (11:23)
[2020-04-28] MEDS ORDERED: BUMEX 1 MG/4 ML VIAL IVP ONE (12:45)
[2020-04-28] MEDS: MICAFUNGIN SODIUM 50 MG in NS 100 ML IV SCH (13:26)
[2020-04-28] MEDS ORDERED: ACETAMINOPHEN 650 MG/20.3 ML UDC ONE (15:19)
[2020-04-28] MEDS: ACETAMINOPHEN 650 MG/20.3 ML UDC GT PRN (15:30)
[2020-04-28] MEDS ORDERED: HEPARIN SODIUM,PORCINE 5,000 UNITS/ML VIAL ONE ×2 (17:00→20:58)
[2020-04-28] MEDS ORDERED: TPN CENTRAL IV SCH ×8 (21:00)
[2020-04-28] MEDS ORDERED: TRACE ELEMENTS IV SCH ×8 (21:00)
[2020-04-28] MEDS ORDERED: POTASSIUM CHLORIDE IV SCH ×8 (21:00)
[2020-04-28] MEDS ORDERED: [UNRECOGNIZED DRUG - OTHER] IV SCH ×8 (21:00)
[2020-04-28] MEDS: FAT EMULSIONS 250 ML IV SCH (22:29)
[2020-04-29] VITALS (31 sets, daily range): BP systolic 107–145
[2020-04-29] MEDS: PROPOFOL DRIP 100 ML IV PRN ×3 (05:09→20:18)
[2020-04-29] MEDS: PIPERACILLIN/TAZO 4.5GM/DEX-IS 100 ML IV SCH ×3 (05:10→21:03)
[2020-04-29 08:54] LABS: ALANINE AMINOTRANSFERASE 51 U/L (12-78); ALBUMIN 1.2 g/dL (3.4-4.8); ANION GAP 16 (5-15); ASPARTATE AMINOTRANSFERASE 82 U/L (10-37); CHLORIDE 97 mmol/L (98-107); GLUCOSE 159 mg/dL (70-99); PHOSPHORUS 4.1 mg/dL (2.7-4.5); POTASSIUM 3.6 mmol/L (3.5-5.1); SODIUM SERUM 136 mmol/L (136-145); TOTAL BILIRUBIN 0.5 mg/dL (0.0-1.0); UREA NITROGEN, BLOOD 65 mg/dL (8-21)
[2020-04-29 09:09] LABS: CALCIUM 6.3 mg/dL (8.4-11.0)
[2020-04-29] MEDS: methylPREDNISolone SOD SUCC 40 MG/ML VIAL IVP SCH ×2 (09:25→20:46)
[2020-04-29] MEDS: PANTOPRAZOLE SODIUM 40 MG/VIAL (PROTONIX) IVP SCH ×2 (09:25→20:46)
[2020-04-29] MEDS: METOPROLOL TARTRATE 50 MG TABLET NG SCH ×2 (09:33→20:47)
[2020-04-29 09:38] LABS: TRIGLYCERIDES 124 mg/dL (30-150)
[2020-04-29] MEDS: INSULIN REGULAR, HUMAN 100 UNITS/ML, 10 ML VIAL (humuLIN R) SUBCUT PRN ×3 (11:56→23:46)
[2020-04-29] MEDS: ACETAMINOPHEN 650 MG/20.3 ML UDC GT PRN (12:32)
[2020-04-29] MEDS ORDERED: ACETAMINOPHEN 650 MG/20.3 ML UDC ONE (12:40)
[2020-04-29] MEDS ORDERED: HEPARIN SODIUM, PORCINE 10,000 UNITS/ 10 ML VIAL MC ONE ×3 (14:45→15:00)
[2020-04-29] MEDS ORDERED: HEPARIN SODIUM,PORCINE 5,000 UNITS/ML VIAL ONE (14:54)
[2020-04-29] MEDS: MICAFUNGIN SODIUM 50 MG in NS 100 ML IV SCH (16:58)
[2020-04-29] MEDS: FAT EMULSIONS 250 ML IV SCH (20:48)
[2020-04-29] MEDS ORDERED: TPN CENTRAL IV SCH ×8 (21:00)
[2020-04-29] MEDS ORDERED: [UNRECOGNIZED DRUG - OTHER] IV SCH ×8 (21:00)
[2020-04-29] MEDS ORDERED: TRACE ELEMENTS IV SCH ×8 (21:00)
[2020-04-29] MEDS ORDERED: POTASSIUM CHLORIDE IV SCH ×8 (21:00)
[2020-04-30] VITALS (29 sets, daily range): BP systolic 102–152
[2020-04-30] MEDS: PROPOFOL DRIP 100 ML IV PRN ×4 (01:53→22:09)
[2020-04-30 04:32] LABS: EOSINOPHILS # (AUTO) 0.7 K/uL (0.0-0.4); HEMATOCRIT 24.9 % (36-48); HEMOGLOBIN 8.2 g/dL (12.0-16.0); LYMPHOCYTES # (AUTO) 1.1 K/uL (1.0-5.5); LYMPHOCYTES % (AUTO) 3.2 % (20.5-51.5); MEAN CORPUSCULAR HEMOGLOBIN 29 pg (27-31); MEAN CORPUSCULAR HGB CONC 33 % (32-36); MEAN CORPUSCULAR VOLUME 87 fL (79.0-98.0); MONOCYTES # (AUTO) 1.6 K/uL (0.0-1.0); MONOCYTES % (AUTO) 4.5 % (1.7-9.3); NEUTROPHILS # (AUTO) 31.9 K/uL (1.8-7.7); NEUTROPHILS % (AUTO) 90.3 % (40.0-70.0); PLATELET COUNT (AUTO) 116 K/uL (130-430); RED BLOOD CELL COUNT(AUTO) 2.85 MIL/uL (4.2-6.2)
[2020-04-30 04:47] LABS: WHITE BLOOD COUNT (AUTO) 35.3 K/uL (4.8-10.8)
[2020-04-30 04:50] LABS: ALANINE AMINOTRANSFERASE 56 U/L (12-78); ALBUMIN 1.2 g/dL (3.4-4.8); ANION GAP 11 (5-15); ASPARTATE AMINOTRANSFERASE 57 U/L (10-37); CHLORIDE 92 mmol/L (98-107); CREATININE 2.88 mg/dL (0.55-1.30); GLUCOSE 286 mg/dL (70-99); POTASSIUM 3.5 mmol/L (3.5-5.1); SODIUM SERUM 129 mmol/L (136-145); UREA NITROGEN, BLOOD 52 mg/dL (8-21)
[2020-04-30 05:06] LABS: CALCIUM 6.4 mg/dL (8.4-11.0); TOTAL BILIRUBIN 0.5 mg/dL (0.0-1.0)
[2020-04-30 05:07] LABS: PHOSPHORUS 4.9 mg/dL (2.7-4.5)
[2020-04-30] MEDS: PIPERACILLIN/TAZO 4.5GM/DEX-IS 100 ML IV SCH ×3 (05:10→21:36)
[2020-04-30] MEDS: INSULIN REGULAR, HUMAN 100 UNITS/ML, 10 ML VIAL (humuLIN R) SUBCUT PRN ×3 (05:20→17:34)
[2020-04-30] MEDS ORDERED: ACETAMINOPHEN 650 MG/20.3 ML UDC ONE (08:27)
[2020-04-30] MEDS: PANTOPRAZOLE SODIUM 40 MG/VIAL (PROTONIX) IVP SCH ×2 (08:28→21:36)
[2020-04-30] MEDS: methylPREDNISolone SOD SUCC 40 MG/ML VIAL IVP SCH ×2 (08:28→21:36)
[2020-04-30] MEDS: ACETAMINOPHEN 650 MG/20.3 ML UDC GT PRN (08:29)
[2020-04-30] MEDS: METOPROLOL TARTRATE 50 MG TABLET NG SCH ×2 (08:29→21:36)
[2020-04-30] MEDS: MICAFUNGIN SODIUM 50 MG in NS 100 ML IV SCH (14:25)
[2020-04-30] MEDS ORDERED: TPN CENTRAL IV SCH ×9 (21:00)
[2020-04-30] MEDS ORDERED: POTASSIUM CHLORIDE IV SCH ×9 (21:00)
[2020-04-30] MEDS ORDERED: TRACE ELEMENTS IV SCH ×9 (21:00)
[2020-04-30] MEDS ORDERED: [UNRECOGNIZED DRUG - OTHER] IV SCH ×9 (21:00)
[2020-05-01] VITALS (30 sets, daily range): BP systolic 96–150
[2020-05-01] MEDS: INSULIN REGULAR, HUMAN 100 UNITS/ML, 10 ML VIAL (humuLIN R) SUBCUT PRN ×5 (00:06→23:41)
[2020-05-01] MEDS: PIPERACILLIN/TAZO 4.5GM/DEX-IS 100 ML IV SCH ×3 (05:14→22:15)
[2020-05-01] MEDS: PROPOFOL DRIP 100 ML IV PRN ×2 (05:14→20:51)
[2020-05-01 06:19] LABS: HEMATOCRIT 25.6 % (36-48); HEMOGLOBIN 8.3 g/dL (12.0-16.0); MEAN CORPUSCULAR HEMOGLOBIN 29 pg (27-31); MEAN CORPUSCULAR HGB CONC 32 % (32-36); MEAN CORPUSCULAR VOLUME 89 fL (79.0-98.0); PLATELET COUNT (AUTO) 136 K/uL (130-430); RED BLOOD CELL COUNT(AUTO) 2.89 MIL/uL (4.2-6.2); RED CELL DISTRIBUTION WIDTH 14.3 % (9.0-15.0)
[2020-05-01 07:19] LABS: WHITE BLOOD COUNT (AUTO) 42.1 K/uL (4.8-10.8)
[2020-05-01 07:22] LABS: ALANINE AMINOTRANSFERASE 66 U/L (12-78); ALBUMIN 1.2 g/dL (3.4-4.8); ASPARTATE AMINOTRANSFERASE 49 U/L (10-37); GLUCOSE 289 mg/dL (70-99); PHOSPHORUS 8.4 mg/dL (2.7-4.5); POTASSIUM 3.8 mmol/L (3.5-5.1); TOTAL BILIRUBIN 0.5 mg/dL (0.0-1.0)
[2020-05-01] MEDS ORDERED: methylPREDNISolone SOD SUCC 40 MG/ML VIAL ONE (08:30)
[2020-05-01] MEDS: methylPREDNISolone SOD SUCC 40 MG/ML VIAL IVP SCH ×2 (08:46→20:31)
[2020-05-01] MEDS: PANTOPRAZOLE SODIUM 40 MG/VIAL (PROTONIX) IVP SCH ×2 (08:46→20:31)
[2020-05-01 09:03] LABS: ANION GAP 20 (5-15); CHLORIDE 80 mmol/L (98-107); UREA NITROGEN, BLOOD 81 mg/dL (8-21)
[2020-05-01 09:14] LABS: SODIUM SERUM 118 mmol/L (136-145)
[2020-05-01 09:15] LABS: CALCIUM 6.8 mg/dL (8.4-11.0)
[2020-05-01 09:57] LABS: ATYPICAL LYMPHOCYTES % 0 % (0-0); BAND % (MANUAL) 22 % (0-6); BASOPHILS % (MANUAL) 0 % (0-2); EOSINOPHILS % (MANUAL) 0 % (0-7); LYMPHOCYTES % (MANUAL) 3 % (20-46); MONOCYTES % (MANUAL) 4 % (0-11)
[2020-05-01] MEDS: METOPROLOL TARTRATE 50 MG TABLET NG SCH ×2 (10:00→20:31)
[2020-05-01] MEDS ORDERED: SODIUM BICARBONATE 8.4% JECT 50 MEQ/50 ML SYRINGE IVP ONE (10:45)
[2020-05-01] MEDS ORDERED: SODIUM BICARBONATE 8.4% JECT 50 MEQ/50 ML SYRINGE ONE (10:58)
[2020-05-01] MEDS: MICAFUNGIN SODIUM 50 MG in NS 100 ML IV SCH (13:51)
[2020-05-01] MEDS ORDERED: HEPARIN SODIUM,PORCINE 5,000 UNITS/ML VIAL ONE ×2 (17:33→17:37)
[2020-05-01] MEDS: metroNIDAZOLE 500 mg/NS 100 ML IV SCH (20:30)
[2020-05-01] MEDS ORDERED: POTASSIUM CHLORIDE IV SCH ×11 (21:00)
[2020-05-01] MEDS ORDERED: TPN CENTRAL IV SCH ×11 (21:00)
[2020-05-01] MEDS ORDERED: TRACE ELEMENTS IV SCH ×11 (21:00)
[2020-05-01] MEDS ORDERED: [UNRECOGNIZED DRUG - OTHER] IV SCH ×11 (21:00)
[2020-05-01] MEDS: LORazepam 2 MG/ML VIAL IVP PRN (22:41)
[2020-05-02] VITALS (30 sets, daily range): BP systolic 86–175
[2020-05-02 05:52] LABS: ALANINE AMINOTRANSFERASE 53 U/L (12-78); ALBUMIN 1.2 g/dL (3.4-4.8); ANION GAP 13 (5-15); ASPARTATE AMINOTRANSFERASE 34 U/L (10-37); CHLORIDE 96 mmol/L (98-107); CREATININE 2.94 mg/dL (0.55-1.30); GLUCOSE 338 mg/dL (70-99); PHOSPHORUS 6.4 mg/dL (2.7-4.5); POTASSIUM 4.1 mmol/L (3.5-5.1); SODIUM SERUM 134 mmol/L (136-145); TOTAL BILIRUBIN 0.6 mg/dL (0.0-1.0); UREA NITROGEN, BLOOD 59 mg/dL (8-21)
[2020-05-02] MEDS: PIPERACILLIN/TAZO 4.5GM/DEX-IS 100 ML IV SCH ×3 (06:52→22:26)
[2020-05-02] MEDS: INSULIN REGULAR, HUMAN 100 UNITS/ML, 10 ML VIAL (humuLIN R) SUBCUT PRN ×3 (06:53→18:25)
[2020-05-02] MEDS: PROPOFOL DRIP 100 ML IV PRN (06:56)
[2020-05-02] MEDS ORDERED: ALBUMIN HUMAN 25% 100 ML IV PRN (08:45)
[2020-05-02] MEDS ORDERED: SODIUM BICARBONATE 8.4% JECT 50 MEQ/50 ML SYRINGE IVP ONE (08:45)
[2020-05-02] MEDS: methylPREDNISolone SOD SUCC 40 MG/ML VIAL IVP SCH ×2 (09:09→20:31)
[2020-05-02] MEDS: PANTOPRAZOLE SODIUM 40 MG/VIAL (PROTONIX) IVP SCH ×2 (09:09→20:31)
[2020-05-02] MEDS: metroNIDAZOLE 500 mg/NS 100 ML IV SCH ×2 (09:13→20:31)
[2020-05-02] MEDS: METOPROLOL TARTRATE 50 MG TABLET NG SCH ×2 (09:29→20:31)
[2020-05-02] MEDS ORDERED: INSULIN GLARGINE 100 UNITS/ML 10 ML VIAL SUBCUT ONE (10:45)
[2020-05-02] MEDS: MICAFUNGIN SODIUM 50 MG in NS 100 ML IV SCH (14:14)
[2020-05-02] MEDS ORDERED: HEPARIN SODIUM,PORCINE 5,000 UNITS/ML VIAL ONE (16:08)
[2020-05-02] MEDS ORDERED: HEPARIN SODIUM,PORCINE 5,000 UNITS/ML VIAL MC ONE (16:15)
[2020-05-02] MEDS ORDERED: METOPROLOL TARTRATE 5 MG/5 ML VIAL IVP ONE (17:45)
[2020-05-02] MEDS ORDERED: MENTHOL/ZINC OXIDE 113 GM OINT. TP PRN (19:15)
[2020-05-02] MEDS: INSULIN GLARGINE 100 UNITS/ML 10 ML VIAL SUBCUT SCH (20:59)
[2020-05-02] MEDS ORDERED: TRACE ELEMENTS IV SCH ×10 (21:00)
[2020-05-02] MEDS ORDERED: [UNRECOGNIZED DRUG - OTHER] IV SCH ×10 (21:00)
[2020-05-02] MEDS ORDERED: POTASSIUM CHLORIDE IV SCH ×10 (21:00)
[2020-05-02] MEDS ORDERED: TPN CENTRAL IV SCH ×10 (21:00)
[2020-05-02] MEDS: hydrALAZINE HCL 20 MG/ML VIAL IVP PRN (23:51)
[2020-05-03] VITALS (30 sets, daily range): BP systolic 104–182
[2020-05-03] MEDS: INSULIN REGULAR, HUMAN 100 UNITS/ML, 10 ML VIAL (humuLIN R) SUBCUT PRN ×5 (00:13→23:55)
[2020-05-03] MEDS: MORPHINE 2 MG/ML INJ. SYRINGE IVP PRN (02:59)
[2020-05-03] MEDS: PROPOFOL DRIP 100 ML IV PRN ×3 (04:45→20:05)
[2020-05-03] MEDS: PIPERACILLIN/TAZO 4.5GM/DEX-IS 100 ML IV SCH ×3 (05:14→23:05)
[2020-05-03 06:46] LABS: ALANINE AMINOTRANSFERASE 45 U/L (12-78); ALBUMIN 1.1 g/dL (3.4-4.8); ANION GAP 11 (5-15); ASPARTATE AMINOTRANSFERASE 40 U/L (10-37); CALCIUM 7.1 mg/dL (8.4-11.0); CHLORIDE 101 mmol/L (98-107); CREATININE 2.52 mg/dL (0.55-1.30); GLUCOSE 179 mg/dL (70-99); PHOSPHORUS 3.7 mg/dL (2.7-4.5); POTASSIUM 3.5 mmol/L (3.5-5.1); SODIUM SERUM 139 mmol/L (136-145); TOTAL BILIRUBIN 0.4 mg/dL (0.0-1.0); UREA NITROGEN, BLOOD 61 mg/dL (8-21)
[2020-05-03 06:51] LABS: MEAN CORPUSCULAR HEMOGLOBIN 30 pg (27-31); MEAN CORPUSCULAR HGB CONC 34 % (32-36); MEAN CORPUSCULAR VOLUME 89 fL (79.0-98.0); PLATELET COUNT (AUTO) 189 K/uL (130-430); RED BLOOD CELL COUNT(AUTO) 2.34 MIL/uL (4.2-6.2); RED CELL DISTRIBUTION WIDTH 14.7 % (9.0-15.0)
[2020-05-03] MEDS ORDERED: COMMUNICATION ORDER XX ONE (07:00)
[2020-05-03 08:20] LABS: HEMATOCRIT 20.9 % (36-48); WHITE BLOOD COUNT (AUTO) 41.9 K/uL (4.8-10.8)
[2020-05-03] MEDS: metroNIDAZOLE 500 mg/NS 100 ML IV SCH ×2 (08:58→20:38)
[2020-05-03] MEDS: methylPREDNISolone SOD SUCC 40 MG/ML VIAL IVP SCH ×2 (09:03→20:37)
[2020-05-03] MEDS: METOPROLOL TARTRATE 50 MG TABLET NG SCH ×2 (09:04→20:38)
[2020-05-03] MEDS: PANTOPRAZOLE SODIUM 40 MG/VIAL (PROTONIX) IVP SCH ×2 (09:05→20:37)
[2020-05-03] MEDS ORDERED: SODIUM BICARBONATE 8.4% JECT 50 MEQ/50 ML SYRINGE IVP ONE (09:30)
[2020-05-03] MEDS: INSULIN GLARGINE 100 UNITS/ML 10 ML VIAL SUBCUT SCH ×2 (09:38→20:39)
[2020-05-03 12:54] LABS: ATYPICAL LYMPHOCYTES % 0 % (0-0); BAND % (MANUAL) 23 % (0-6); LYMPHOCYTES % (MANUAL) 2 % (20-46); MONOCYTES % (MANUAL) 4 % (0-11)
[2020-05-03 12:55] LABS: BASOPHILS % (MANUAL) 0 % (0-2); BLASTS, MANUAL % 0 % (0-0); EOSINOPHILS % (MANUAL) 0 % (0-7); METAMYELOCYTES % 2 % (0-0); MYELOCYTES % 3 % (0-0); PROMYELOCYTES % 3 % (0-0)
[2020-05-03] MEDS: VANCOMYCIN HCL 1,000 MG in NS 250 ML IV SCH (14:23)
[2020-05-03] MEDS: MICAFUNGIN SODIUM 50 MG in NS 100 ML IV SCH (16:11)
[2020-05-03] MEDS: hydrALAZINE HCL 20 MG/ML VIAL IVP PRN (19:02)
[2020-05-03 19:58] LABS: HEMATOCRIT 35.2 % (36-48); HEMOGLOBIN 11.6 g/dL (12.0-16.0)
[2020-05-03] MEDS ORDERED: TRACE ELEMENTS IV SCH ×12 (21:00)
[2020-05-03] MEDS ORDERED: POTASSIUM CHLORIDE IV SCH ×12 (21:00)
[2020-05-03] MEDS ORDERED: TPN CENTRAL IV SCH ×12 (21:00)
[2020-05-03] MEDS ORDERED: [UNRECOGNIZED DRUG - OTHER] IV SCH ×12 (21:00)
[2020-05-04] VITALS (30 sets, daily range): BP systolic 100–170
[2020-05-04] MEDS: PROPOFOL DRIP 100 ML IV PRN (03:44)
[2020-05-04] MEDS: hydrALAZINE HCL 20 MG/ML VIAL IVP PRN ×2 (03:52→22:05)
[2020-05-04] MEDS: PIPERACILLIN/TAZO 4.5GM/DEX-IS 100 ML IV SCH ×3 (05:20→22:04)
[2020-05-04] MEDS: INSULIN REGULAR, HUMAN 100 UNITS/ML, 10 ML VIAL (humuLIN R) SUBCUT PRN ×3 (05:27→18:07)
[2020-05-04 07:53] LABS: ALANINE AMINOTRANSFERASE 50 U/L (12-78); ALBUMIN 1.2 g/dL (3.4-4.8); ANION GAP 21 (5-15); ASPARTATE AMINOTRANSFERASE 50 U/L (10-37); CALCIUM 7.8 mg/dL (8.4-11.0); CHLORIDE 97 mmol/L (98-107); CREATININE 3.44 mg/dL (0.55-1.30); GLUCOSE 168 mg/dL (70-99); PHOSPHORUS 5.4 mg/dL (2.7-4.5); POTASSIUM 4.3 mmol/L (3.5-5.1); SODIUM SERUM 138 mmol/L (136-145); TOTAL BILIRUBIN 0.7 mg/dL (0.0-1.0)
[2020-05-04] MEDS ORDERED: SODIUM BICARBONATE 8.4% JECT 50 MEQ/50 ML SYRINGE IVP ONE (08:15)
[2020-05-04 08:16] LABS: UREA NITROGEN, BLOOD 102 mg/dL (8-21)
[2020-05-04] MEDS: ACETAMINOPHEN 650 MG/20.3 ML UDC GT PRN (08:39)
[2020-05-04] MEDS ORDERED: ACETAMINOPHEN 650 MG/20.3 ML UDC ONE (08:40)
[2020-05-04] MEDS: PANTOPRAZOLE SODIUM 40 MG/VIAL (PROTONIX) IVP SCH ×2 (09:57→21:33)
[2020-05-04] MEDS: methylPREDNISolone SOD SUCC 40 MG/ML VIAL IVP SCH ×2 (09:57→21:33)
[2020-05-04] MEDS: METOPROLOL TARTRATE 50 MG TABLET NG SCH ×2 (09:57→21:34)
[2020-05-04] MEDS: metroNIDAZOLE 500 mg/NS 100 ML IV SCH ×2 (10:01→20:46)
[2020-05-04] MEDS: INSULIN GLARGINE 100 UNITS/ML 10 ML VIAL SUBCUT SCH ×2 (10:17→21:30)
[2020-05-04] MEDS ORDERED: HEPARIN SODIUM,PORCINE 5,000 UNITS/ML VIAL ONE (14:55)
[2020-05-04] MEDS ORDERED: HEPARIN SODIUM,PORCINE 5,000 UNITS/ML VIAL MC ONE (15:15)
[2020-05-04] MEDS: MICAFUNGIN SODIUM 50 MG in NS 100 ML IV SCH (16:12)
[2020-05-04] MEDS ORDERED: [UNRECOGNIZED DRUG - OTHER] IV SCH ×10 (21:00)
[2020-05-04] MEDS ORDERED: TRACE ELEMENTS IV SCH ×10 (21:00)
[2020-05-04] MEDS ORDERED: POTASSIUM CHLORIDE IV SCH ×10 (21:00)
[2020-05-04] MEDS ORDERED: TPN CENTRAL IV SCH ×10 (21:00)
[2020-05-05] VITALS (30 sets, daily range): BP systolic 16–171
[2020-05-05] MEDS: hydrALAZINE HCL 20 MG/ML VIAL IVP PRN (04:33)
[2020-05-05] MEDS: PROPOFOL DRIP 100 ML IV PRN ×4 (04:42→20:07)
[2020-05-05] MEDS: PIPERACILLIN/TAZO 4.5GM/DEX-IS 100 ML IV SCH ×3 (06:24→22:00)
[2020-05-05 06:43] LABS: ALANINE AMINOTRANSFERASE 42 U/L (12-78); ALBUMIN 1.7 g/dL (3.4-4.8); ANION GAP 14 (5-15); ASPARTATE AMINOTRANSFERASE 41 U/L (10-37); CALCIUM 8.7 mg/dL (8.4-11.0); CHLORIDE 98 mmol/L (98-107); CREATININE 2.98 mg/dL (0.55-1.30); GLUCOSE 124 mg/dL (70-99); PHOSPHORUS 5.7 mg/dL (2.7-4.5); POTASSIUM 3.7 mmol/L (3.5-5.1); SODIUM SERUM 138 mmol/L (136-145); TOTAL BILIRUBIN 0.6 mg/dL (0.0-1.0); UREA NITROGEN, BLOOD 83 mg/dL (8-21)
[2020-05-05] MEDS: METOPROLOL TARTRATE 50 MG TABLET NG SCH ×2 (09:23→20:24)
[2020-05-05] MEDS: methylPREDNISolone SOD SUCC 40 MG/ML VIAL IVP SCH ×2 (09:24→20:24)
[2020-05-05] MEDS: metroNIDAZOLE 500 mg/NS 100 ML IV SCH ×2 (09:24→20:08)
[2020-05-05] MEDS: PANTOPRAZOLE SODIUM 40 MG/VIAL (PROTONIX) IVP SCH ×2 (09:24→20:23)
[2020-05-05] MEDS: INSULIN GLARGINE 100 UNITS/ML 10 ML VIAL SUBCUT SCH ×2 (09:28→20:14)
[2020-05-05] MEDS ORDERED: HEPARIN SODIUM,PORCINE 5,000 UNITS/ML VIAL ONE (12:20)
[2020-05-05] MEDS ORDERED: HEPARIN SODIUM,PORCINE 5,000 UNITS/ML VIAL MC ONE (12:30)
[2020-05-05] MEDS: VANCOMYCIN HCL 1,000 MG in NS 250 ML IV SCH (13:42)
[2020-05-05] MEDS: INSULIN REGULAR, HUMAN 100 UNITS/ML, 10 ML VIAL (humuLIN R) SUBCUT PRN ×2 (13:56→18:53)
[2020-05-05] MEDS: MICAFUNGIN SODIUM 50 MG in NS 100 ML IV SCH (14:31)
[2020-05-05 15:40] LABS: HEMATOCRIT 34.2 % (36-48); HEMOGLOBIN 11.3 g/dL (12.0-16.0); MEAN CORPUSCULAR HEMOGLOBIN 29 pg (27-31); MEAN CORPUSCULAR HGB CONC 33 % (32-36); MEAN CORPUSCULAR VOLUME 88 fL (79.0-98.0); PLATELET COUNT (AUTO) 162 K/uL (130-430); RED BLOOD CELL COUNT(AUTO) 3.88 MIL/uL (4.2-6.2); WHITE BLOOD COUNT (AUTO) 27.8 K/uL (4.8-10.8)
[2020-05-05 15:57] LABS: BAND % (MANUAL) 10 % (0-6); BASOPHILS % (MANUAL) 0 % (0-2); EOSINOPHILS % (MANUAL) 0 % (0-7); LYMPHOCYTES % (MANUAL) 0 % (20-46); MONOCYTES % (MANUAL) 2 % (0-11)
[2020-05-06] VITALS (32 sets, daily range): BP systolic 112–167
[2020-05-06] MEDS: PIPERACILLIN/TAZO 4.5GM/DEX-IS 100 ML IV SCH ×3 (05:54→22:38)
[2020-05-06 06:13] LABS: BASOPHILS # (AUTO) 0.1 K/uL (0.0-0.2); BASOPHILS % (AUTO) 0.4 % (0.0-2.0); EOSINOPHILS % (AUTO) 0.1 % (0.0-4.0); HEMOGLOBIN 10.4 g/dL (12.0-16.0); LYMPHOCYTES # (AUTO) 0.3 K/uL (1.0-5.5); LYMPHOCYTES % (AUTO) 1.4 % (20.5-51.5); MEAN CORPUSCULAR HEMOGLOBIN 29 pg (27-31); MEAN CORPUSCULAR HGB CONC 33 % (32-36); MEAN CORPUSCULAR VOLUME 88 fL (79.0-98.0); MONOCYTES # (AUTO) 0.8 K/uL (0.0-1.0); MONOCYTES % (AUTO) 3.9 % (1.7-9.3); NEUTROPHILS # (AUTO) 19.5 K/uL (1.8-7.7); NEUTROPHILS % (AUTO) 94.2 % (40.0-70.0); PLATELET COUNT (AUTO) 137 K/uL (130-430); RED BLOOD CELL COUNT(AUTO) 3.54 MIL/uL (4.2-6.2); RED CELL DISTRIBUTION WIDTH 14.8 % (9.0-15.0); WHITE BLOOD COUNT (AUTO) 20.7 K/uL (4.8-10.8)
[2020-05-06] MEDS: PROPOFOL DRIP 100 ML IV PRN ×3 (06:22→23:54)
[2020-05-06] MEDS: METOPROLOL TARTRATE 50 MG TABLET NG SCH ×2 (09:50→21:00)
[2020-05-06] MEDS: PANTOPRAZOLE SODIUM 40 MG/VIAL (PROTONIX) IVP SCH ×2 (09:50→21:00)
[2020-05-06] MEDS: metroNIDAZOLE 500 mg/NS 100 ML IV SCH ×2 (09:50→21:00)
[2020-05-06] MEDS: INSULIN GLARGINE 100 UNITS/ML 10 ML VIAL SUBCUT SCH ×2 (09:52→20:22)
[2020-05-06] MEDS: methylPREDNISolone SOD SUCC 40 MG/ML VIAL IVP SCH ×2 (10:15→21:00)
[2020-05-06] MEDS ORDERED: HEPARIN SODIUM,PORCINE 5,000 UNITS/ML VIAL ONE (10:35)
[2020-05-06] MEDS: ACETAMINOPHEN 650 MG/20.3 ML UDC GT PRN (13:06)
[2020-05-06] MEDS ORDERED: ACETAMINOPHEN 650 MG/20.3 ML UDC ONE (13:07)
[2020-05-06] MEDS: MICAFUNGIN SODIUM 50 MG in NS 100 ML IV SCH (13:22)
[2020-05-06] MEDS: INSULIN REGULAR, HUMAN 100 UNITS/ML, 10 ML VIAL (humuLIN R) SUBCUT PRN (18:40)
[2020-05-07] VITALS (31 sets, daily range): BP systolic 91–174
[2020-05-07 06:32] LABS: BASOPHILS % (AUTO) 0.2 % (0.0-2.0); EOSINOPHILS % (AUTO) 0.1 % (0.0-4.0); HEMATOCRIT 29.2 % (36-48); HEMOGLOBIN 9.7 g/dL (12.0-16.0); LYMPHOCYTES # (AUTO) 0.2 K/uL (1.0-5.5); MEAN CORPUSCULAR HEMOGLOBIN 30 pg (27-31); MEAN CORPUSCULAR HGB CONC 33 % (32-36); MEAN CORPUSCULAR VOLUME 89 fL (79.0-98.0); MONOCYTES # (AUTO) 0.2 K/uL (0.0-1.0); MONOCYTES % (AUTO) 1.3 % (1.7-9.3); NEUTROPHILS # (AUTO) 17.9 K/uL (1.8-7.7); NEUTROPHILS % (AUTO) 97.4 % (40.0-70.0); PLATELET COUNT (AUTO) 120 K/uL (130-430); RED BLOOD CELL COUNT(AUTO) 3.29 MIL/uL (4.2-6.2); RED CELL DISTRIBUTION WIDTH 15.1 % (9.0-15.0); WHITE BLOOD COUNT (AUTO) 18.3 K/uL (4.8-10.8)
[2020-05-07] MEDS ORDERED: DEXTROSE 50% JECT 50 ML DISP.SYRIN ONE (06:38)
[2020-05-07] MEDS: PIPERACILLIN/TAZO 4.5GM/DEX-IS 100 ML IV SCH ×3 (06:45→22:32)
[2020-05-07] MEDS ORDERED: D5W 1,000 ML IV PRN (07:00)
[2020-05-07 07:07] LABS: ANION GAP 12 (5-15); CHLORIDE 99 mmol/L (98-107); CREATININE 2.26 mg/dL (0.55-1.30); GLUCOSE 71 mg/dL (70-99); POTASSIUM 3.9 mmol/L (3.5-5.1); SODIUM SERUM 138 mmol/L (136-145); UREA NITROGEN, BLOOD 61 mg/dL (8-21)
[2020-05-07] MEDS: PROPOFOL DRIP 100 ML IV PRN ×2 (08:00→20:00)
[2020-05-07] MEDS: methylPREDNISolone SOD SUCC 40 MG/ML VIAL IVP SCH ×2 (09:27→22:18)
[2020-05-07] MEDS: PANTOPRAZOLE SODIUM 40 MG/VIAL (PROTONIX) IVP SCH ×2 (09:27→22:17)
[2020-05-07] MEDS: METOPROLOL TARTRATE 50 MG TABLET NG SCH ×2 (09:28→22:18)
[2020-05-07] MEDS: metroNIDAZOLE 500 mg/NS 100 ML IV SCH ×2 (09:38→22:05)
[2020-05-07] MEDS: INSULIN GLARGINE 100 UNITS/ML 10 ML VIAL SUBCUT SCH ×2 (09:55→22:30)
[2020-05-07] MEDS: VANCOMYCIN HCL 1,000 MG in NS 250 ML IV SCH (13:25)
[2020-05-07] MEDS: MICAFUNGIN SODIUM 50 MG in NS 100 ML IV SCH (14:09)
[2020-05-07] MEDS ORDERED: NALOXONE HCL 0.4 MG/ML AMP (NARCAN) IVP PRN (16:30)
[2020-05-07] MEDS: MORPHINE 2 MG/ML INJ. SYRINGE IVP PRN (17:00)
[2020-05-07] MEDS: INSULIN REGULAR, HUMAN 100 UNITS/ML, 10 ML VIAL (humuLIN R) SUBCUT PRN (17:35)
[2020-05-07] MEDS ORDERED: NOREPINEPHRINE 4 MG/4 ML VIAL IV ONE (18:32)
[2020-05-07] MEDS: NOREPINEPHRINE BITARTRATE 16 MG in D5W 234 ML IV PRN (18:39)
[2020-05-07] MEDS ORDERED: HEPARIN SODIUM,PORCINE 5,000 UNITS/ML VIAL IVP ONE ×2 (19:00)
[2020-05-08] VITALS (29 sets, daily range): BP systolic 90–177
[2020-05-08] MEDS: INSULIN REGULAR, HUMAN 100 UNITS/ML, 10 ML VIAL (humuLIN R) SUBCUT PRN ×3 (01:11→17:46)
[2020-05-08] MEDS: PROPOFOL DRIP 100 ML IV PRN ×4 (03:31→22:14)
[2020-05-08 06:16] LABS: ANION GAP 11 (5-15); CALCIUM 8.1 mg/dL (8.4-11.0); CHLORIDE 98 mmol/L (98-107); CREATININE 1.95 mg/dL (0.55-1.30); GLUCOSE 174 mg/dL (70-99); POTASSIUM 3.7 mmol/L (3.5-5.1); SODIUM SERUM 136 mmol/L (136-145); UREA NITROGEN, BLOOD 49 mg/dL (8-21)
[2020-05-08] MEDS: PIPERACILLIN/TAZO 4.5GM/DEX-IS 100 ML IV SCH ×3 (06:54→22:11)
[2020-05-08] MEDS: methylPREDNISolone SOD SUCC 40 MG/ML VIAL IVP SCH ×2 (08:25→20:29)
[2020-05-08] MEDS: PANTOPRAZOLE SODIUM 40 MG/VIAL (PROTONIX) IVP SCH ×2 (08:25→20:29)
[2020-05-08] MEDS: metroNIDAZOLE 500 mg/NS 100 ML IV SCH ×2 (08:25→20:28)
[2020-05-08] MEDS: INSULIN GLARGINE 100 UNITS/ML 10 ML VIAL SUBCUT SCH ×2 (08:29→20:45)
[2020-05-08] MEDS: METOPROLOL TARTRATE 50 MG TABLET NG SCH ×2 (08:53→20:32)
[2020-05-08] MEDS: MORPHINE 2 MG/ML INJ. SYRINGE IVP PRN ×2 (13:02→20:49)
[2020-05-08] MEDS: MICAFUNGIN SODIUM 50 MG in NS 100 ML IV SCH (14:54)
[2020-05-08] MEDS ORDERED: ALBUMIN HUMAN 25% 100 ML IV ONE ×2 (15:30→15:45)
[2020-05-08] MEDS ORDERED: HEPARIN SODIUM,PORCINE 5,000 UNITS/ML VIAL MC ONE (16:30)
[2020-05-08] MEDS: DILTIAZEM HCL 25 MG/5 ML VIAL IVP PRN (23:21)
[2020-05-09] VITALS (25 sets, daily range): BP systolic 89–161
[2020-05-09] MEDS: DILTIAZEM HCL 25 MG/5 ML VIAL IVP PRN ×2 (03:57→09:01)
[2020-05-09] MEDS: PROPOFOL DRIP 100 ML IV PRN ×3 (04:19→22:04)
[2020-05-09] MEDS ORDERED: ACETAMINOPHEN 650 MG/20.3 ML UDC ONE ×3 (05:02→21:08)
[2020-05-09] MEDS: PIPERACILLIN/TAZO 4.5GM/DEX-IS 100 ML IV SCH ×3 (05:11→23:29)
[2020-05-09] MEDS: ACETAMINOPHEN 650 MG/20.3 ML UDC GT PRN ×3 (05:11→21:37)
[2020-05-09] MEDS: PANTOPRAZOLE SODIUM 40 MG/VIAL (PROTONIX) IVP SCH ×2 (08:56→20:49)
[2020-05-09] MEDS: metroNIDAZOLE 500 mg/NS 100 ML IV SCH ×2 (08:56→20:49)
[2020-05-09] MEDS: methylPREDNISolone SOD SUCC 40 MG/ML VIAL IVP SCH ×2 (08:57→20:50)
[2020-05-09] MEDS: METOPROLOL TARTRATE 50 MG TABLET NG SCH ×3 (08:59→21:41)
[2020-05-09] MEDS: INSULIN GLARGINE 100 UNITS/ML 10 ML VIAL SUBCUT SCH ×2 (10:31→20:55)
[2020-05-09] MEDS: MICAFUNGIN SODIUM 50 MG in NS 100 ML IV SCH (14:00)
[2020-05-10] VITALS (30 sets, daily range): BP systolic 107–164
[2020-05-10] MEDS: PROPOFOL DRIP 100 ML IV PRN (04:11)
[2020-05-10] MEDS: PIPERACILLIN/TAZO 4.5GM/DEX-IS 100 ML IV SCH ×2 (06:13→14:11)
[2020-05-10] MEDS: METOPROLOL TARTRATE 50 MG TABLET NG SCH (07:33)
[2020-05-10] MEDS: metroNIDAZOLE 500 mg/NS 100 ML IV SCH ×2 (08:46→23:46)
[2020-05-10] MEDS: PANTOPRAZOLE SODIUM 40 MG/VIAL (PROTONIX) IVP SCH ×2 (08:46→23:46)
[2020-05-10] MEDS: methylPREDNISolone SOD SUCC 40 MG/ML VIAL IVP SCH ×2 (08:46→23:46)
[2020-05-10] MEDS: INSULIN GLARGINE 100 UNITS/ML 10 ML VIAL SUBCUT SCH ×2 (09:00→23:54)
[2020-05-10] MEDS ORDERED: HEPARIN SODIUM,PORCINE 5,000 UNITS/ML VIAL ONE (11:22)
[2020-05-10] MEDS: MICAFUNGIN SODIUM 50 MG in NS 100 ML IV SCH (14:11)
[2020-05-10] MEDS: INSULIN REGULAR, HUMAN 100 UNITS/ML, 10 ML VIAL (humuLIN R) SUBCUT PRN (17:49)
[2020-05-10] MEDS: MORPHINE 2 MG/ML INJ. SYRINGE IVP PRN (22:57)
[2020-05-11] VITALS (29 sets, daily range): BP systolic 83–200
[2020-05-11] MEDS: METOPROLOL TARTRATE 50 MG TABLET NG SCH ×4 (00:01→22:12)
[2020-05-11] MEDS ORDERED: MIDAZOLAM HCL IN 0.9 % NACL/PF 50 ML IV PRN (00:30)
[2020-05-11] MEDS ORDERED: LORazepam 2 MG/ML VIAL ONE ×4 (00:37→23:05)
[2020-05-11] MEDS: LORazepam 2 MG/ML VIAL IVP PRN ×4 (00:40→23:10)
[2020-05-11] MEDS: INSULIN REGULAR, HUMAN 100 UNITS/ML, 10 ML VIAL (humuLIN R) SUBCUT PRN ×3 (01:27→18:55)
[2020-05-11] MEDS: PIPERACILLIN/TAZO 4.5GM/DEX-IS 100 ML IV SCH ×2 (01:45→05:49)
[2020-05-11] MEDS: PROPOFOL DRIP 100 ML IV PRN ×2 (03:00→09:01)
[2020-05-11 06:18] LABS: BASOPHILS % (AUTO) 0.3 % (0.0-2.0); EOSINOPHILS % (AUTO) 0.1 % (0.0-4.0); HEMATOCRIT 28.5 % (36-48); HEMOGLOBIN 9.5 g/dL (12.0-16.0); LYMPHOCYTES # (AUTO) 0.4 K/uL (1.0-5.5); LYMPHOCYTES % (AUTO) 2.3 % (20.5-51.5); MEAN CORPUSCULAR HEMOGLOBIN 30 pg (27-31); MEAN CORPUSCULAR HGB CONC 33 % (32-36); MEAN CORPUSCULAR VOLUME 90 fL (79.0-98.0); MONOCYTES # (AUTO) 0.5 K/uL (0.0-1.0); MONOCYTES % (AUTO) 2.9 % (1.7-9.3); NEUTROPHILS # (AUTO) 16.7 K/uL (1.8-7.7); NEUTROPHILS % (AUTO) 94.4 % (40.0-70.0); PLATELET COUNT (AUTO) 175 K/uL (130-430); RED BLOOD CELL COUNT(AUTO) 3.18 MIL/uL (4.2-6.2); RED CELL DISTRIBUTION WIDTH 15.8 % (9.0-15.0); WHITE BLOOD COUNT (AUTO) 17.7 K/uL (4.8-10.8)
[2020-05-11 06:42] LABS: ALANINE AMINOTRANSFERASE 48 U/L (12-78); ALBUMIN 1.9 g/dL (3.4-4.8); ASPARTATE AMINOTRANSFERASE 62 U/L (10-37); CALCIUM 7.6 mg/dL (8.4-11.0); CHLORIDE 95 mmol/L (98-107); CREATININE 2.44 mg/dL (0.55-1.30); GLUCOSE 151 mg/dL (70-99); PHOSPHORUS 7.6 mg/dL (2.7-4.5); POTASSIUM 4.6 mmol/L (3.5-5.1); SODIUM SERUM 134 mmol/L (136-145); TOTAL BILIRUBIN 0.8 mg/dL (0.0-1.0); UREA NITROGEN, BLOOD 74 mg/dL (8-21)
[2020-05-11 07:05] LABS: ANION GAP 16 (5-15)
[2020-05-11] MEDS: PANTOPRAZOLE SODIUM 40 MG/VIAL (PROTONIX) IVP SCH ×2 (09:53→21:10)
[2020-05-11] MEDS: methylPREDNISolone SOD SUCC 40 MG/ML VIAL IVP SCH ×2 (09:53→21:10)
[2020-05-11] MEDS: metroNIDAZOLE 500 mg/NS 100 ML IV SCH ×2 (09:53→20:53)
[2020-05-11] MEDS: INSULIN GLARGINE 100 UNITS/ML 10 ML VIAL SUBCUT SCH ×2 (09:54→21:01)
[2020-05-11] MEDS ORDERED: SODIUM BICARBONATE 8.4% JECT 50 MEQ/50 ML SYRINGE IVP ONE (10:15)
[2020-05-11] MEDS: MICAFUNGIN SODIUM 50 MG in NS 100 ML IV SCH (14:00)
[2020-05-11] MEDS ORDERED: SODIUM BICARBONATE 8.4% JECT 50 MEQ/50 ML SYRINGE ONE (14:51)
[2020-05-11] MEDS ORDERED: MIDAZOLAM IN NACL,ISO-OSMOT/PF 100 ML IV PRN (15:00)
[2020-05-11] MEDS ORDERED: HEPARIN SODIUM,PORCINE 5,000 UNITS/ML VIAL ONE (19:30)
[2020-05-11] MEDS: CEFEPIME 0.5 GM in D5W 50 ML IV SCH (20:53)
[2020-05-11] MEDS: DILTIAZEM HCL 25 MG/5 ML VIAL IVP PRN (23:23)
[2020-05-12] VITALS (31 sets, daily range): BP systolic 92–136
[2020-05-12] MEDS: PROPOFOL DRIP 100 ML IV PRN ×4 (01:52→21:55)
[2020-05-12 06:54] LABS: BASOPHILS % (AUTO) 0.3 % (0.0-2.0); HEMATOCRIT 29.2 % (36-48); HEMOGLOBIN 9.8 g/dL (12.0-16.0); LYMPHOCYTES # (AUTO) 0.7 K/uL (1.0-5.5); LYMPHOCYTES % (AUTO) 4.7 % (20.5-51.5); MEAN CORPUSCULAR HEMOGLOBIN 30 pg (27-31); MEAN CORPUSCULAR HGB CONC 34 % (32-36); MEAN CORPUSCULAR VOLUME 90 fL (79.0-98.0); MONOCYTES # (AUTO) 0.4 K/uL (0.0-1.0); MONOCYTES % (AUTO) 2.6 % (1.7-9.3); NEUTROPHILS # (AUTO) 13.7 K/uL (1.8-7.7); NEUTROPHILS % (AUTO) 92.4 % (40.0-70.0); PLATELET COUNT (AUTO) 169 K/uL (130-430); RED BLOOD CELL COUNT(AUTO) 3.26 MIL/uL (4.2-6.2); RED CELL DISTRIBUTION WIDTH 16.1 % (9.0-15.0); WHITE BLOOD COUNT (AUTO) 14.8 K/uL (4.8-10.8)
[2020-05-12 07:44] LABS: ALANINE AMINOTRANSFERASE 54 U/L (12-78); ALBUMIN 1.8 g/dL (3.4-4.8); ANION GAP 11 (5-15); ASPARTATE AMINOTRANSFERASE 57 U/L (10-37); CALCIUM 7.9 mg/dL (8.4-11.0); CHLORIDE 100 mmol/L (98-107); CREATININE 1.86 mg/dL (0.55-1.30); GLUCOSE 96 mg/dL (70-99); PHOSPHORUS 6.1 mg/dL (2.7-4.5); POTASSIUM 3.4 mmol/L (3.5-5.1); SODIUM SERUM 142 mmol/L (136-145); TOTAL BILIRUBIN 0.6 mg/dL (0.0-1.0); UREA NITROGEN, BLOOD 54 mg/dL (8-21)
[2020-05-12] MEDS: METOPROLOL TARTRATE 50 MG TABLET NG SCH ×2 (08:56→21:00)
[2020-05-12] MEDS: PANTOPRAZOLE SODIUM 40 MG/VIAL (PROTONIX) IVP SCH ×2 (09:00→21:52)
[2020-05-12] MEDS: INSULIN GLARGINE 100 UNITS/ML 10 ML VIAL SUBCUT SCH ×2 (09:00→21:00)
[2020-05-12] MEDS: methylPREDNISolone SOD SUCC 40 MG/ML VIAL IVP SCH ×2 (09:00→21:52)
[2020-05-12] MEDS: metroNIDAZOLE 500 mg/NS 100 ML IV SCH ×2 (09:00→21:52)
[2020-05-12] MEDS: MORPHINE 2 MG/ML INJ. SYRINGE IVP PRN (12:02)
[2020-05-12] MEDS: MICAFUNGIN SODIUM 50 MG in NS 100 ML IV SCH (14:50)
[2020-05-12] MEDS ORDERED: SODIUM BICARBONATE 8.4% JECT 50 MEQ/50 ML SYRINGE IVP ONE ×2 (18:00)
[2020-05-12] MEDS: CEFEPIME 0.5 GM in D5W 50 ML IV SCH (18:31)
[2020-05-13] VITALS (31 sets, daily range): BP systolic 90–168
[2020-05-13] MEDS: PROPOFOL DRIP 100 ML IV PRN ×3 (05:44→19:05)
[2020-05-13] MEDS: INSULIN REGULAR, HUMAN 100 UNITS/ML, 10 ML VIAL (humuLIN R) SUBCUT PRN ×3 (06:24→18:59)
[2020-05-13 08:11] LABS: ALANINE AMINOTRANSFERASE 42 U/L (12-78); ALBUMIN 1.5 g/dL (3.4-4.8); ANION GAP 16 (5-15); ASPARTATE AMINOTRANSFERASE 42 U/L (10-37); CALCIUM 7.1 mg/dL (8.4-11.0); CHLORIDE 97 mmol/L (98-107); CREATININE 2.76 mg/dL (0.55-1.30); GLUCOSE 195 mg/dL (70-99); POTASSIUM 3.6 mmol/L (3.5-5.1); SODIUM SERUM 139 mmol/L (136-145); TOTAL BILIRUBIN 0.6 mg/dL (0.0-1.0); UREA NITROGEN, BLOOD 89 mg/dL (8-21)
[2020-05-13] MEDS: methylPREDNISolone SOD SUCC 40 MG/ML VIAL IVP SCH ×2 (08:27→21:05)
[2020-05-13] MEDS: PANTOPRAZOLE SODIUM 40 MG/VIAL (PROTONIX) IVP SCH ×2 (08:27→21:05)
[2020-05-13] MEDS: METOPROLOL TARTRATE 50 MG TABLET NG SCH ×2 (08:36→21:05)
[2020-05-13] MEDS: MORPHINE 2 MG/ML INJ. SYRINGE IVP PRN ×2 (08:39→17:40)
[2020-05-13] MEDS: metroNIDAZOLE 500 mg/NS 100 ML IV SCH ×2 (08:40→21:05)
[2020-05-13] MEDS: INSULIN GLARGINE 100 UNITS/ML 10 ML VIAL SUBCUT SCH ×2 (08:54→21:24)
[2020-05-13] MEDS: MICAFUNGIN SODIUM 50 MG in NS 100 ML IV SCH (13:03)
[2020-05-13] MEDS ORDERED: HEPARIN SODIUM, PORCINE 10,000 UNITS/ 10 ML VIAL ONE (14:40)
[2020-05-13] MEDS ORDERED: ALBUMIN HUMAN 25% 200 ML IV ONE (15:00)
[2020-05-13] MEDS: CEFEPIME 0.5 GM in D5W 50 ML IV SCH (19:32)
[2020-05-14] VITALS (30 sets, daily range): BP systolic 86–170
[2020-05-14] MEDS ORDERED: DEXTROSE 50% JECT 50 ML DISP.SYRIN ONE ×2 (00:48→06:34)
[2020-05-14] MEDS: DEXTROSE 50% JECT 50 ML DISP.SYRIN IVP PRN ×2 (00:53→06:38)
[2020-05-14 06:35] LABS: EOSINOPHILS % (AUTO) 0.2 % (0.0-4.0); HEMATOCRIT 25.8 % (36-48); HEMOGLOBIN 8.3 g/dL (12.0-16.0); LYMPHOCYTES # (AUTO) 0.7 K/uL (1.0-5.5); MEAN CORPUSCULAR HEMOGLOBIN 29 pg (27-31); MEAN CORPUSCULAR HGB CONC 32 % (32-36); MEAN CORPUSCULAR VOLUME 90 fL (79.0-98.0); MONOCYTES # (AUTO) 0.7 K/uL (0.0-1.0); MONOCYTES % (AUTO) 4.6 % (1.7-9.3); NEUTROPHILS # (AUTO) 12.9 K/uL (1.8-7.7); NEUTROPHILS % (AUTO) 90.2 % (40.0-70.0); PLATELET COUNT (AUTO) 204 K/uL (130-430); RED BLOOD CELL COUNT(AUTO) 2.88 MIL/uL (4.2-6.2); RED CELL DISTRIBUTION WIDTH 16.2 % (9.0-15.0); WHITE BLOOD COUNT (AUTO) 14.2 K/uL (4.8-10.8)
[2020-05-14 06:49] LABS: INR 1.2 (0.8-1.2); PROTHROMBIN TIME 12.2 SECS (9.5-12.5)
[2020-05-14] MEDS: INSULIN GLARGINE 100 UNITS/ML 10 ML VIAL SUBCUT SCH ×2 (08:13→20:45)
[2020-05-14] MEDS: methylPREDNISolone SOD SUCC 40 MG/ML VIAL IVP SCH ×2 (08:27→20:46)
[2020-05-14] MEDS: metroNIDAZOLE 500 mg/NS 100 ML IV SCH ×2 (08:27→21:57)
[2020-05-14] MEDS: PANTOPRAZOLE SODIUM 40 MG/VIAL (PROTONIX) IVP SCH ×2 (08:27→20:46)
[2020-05-14] MEDS: METOPROLOL TARTRATE 50 MG TABLET NG SCH ×2 (08:31→20:44)
[2020-05-14 09:04] LABS: ALANINE AMINOTRANSFERASE 44 U/L (12-78); ALBUMIN 2.5 g/dL (3.4-4.8); ANION GAP 12 (5-15); ASPARTATE AMINOTRANSFERASE 56 U/L (10-37); CALCIUM 7.3 mg/dL (8.4-11.0); CHLORIDE 98 mmol/L (98-107); CREATININE 1.85 mg/dL (0.55-1.30); GLUCOSE 120 mg/dL (70-99); SODIUM SERUM 138 mmol/L (136-145); TOTAL BILIRUBIN 0.7 mg/dL (0.0-1.0); UREA NITROGEN, BLOOD 58 mg/dL (8-21)
[2020-05-14 09:07] LABS: POTASSIUM 2.9 mmol/L (3.5-5.1)
[2020-05-14] MEDS ORDERED: POTASSIUM CHLORIDE 20 MEQ/PKT PACKET PO ONE (09:45)
[2020-05-14] MEDS ORDERED: SODIUM BICARBONATE 8.4% JECT 50 MEQ/50 ML SYRINGE IVP ONE (09:45)
[2020-05-14] MEDS: PROPOFOL DRIP 100 ML IV PRN ×2 (13:23→18:11)
[2020-05-14] MEDS: MICAFUNGIN SODIUM 50 MG in NS 100 ML IV SCH (13:23)
[2020-05-14] MEDS ORDERED: ALBUMIN HUMAN 25% 100 ML IV PRN (18:30)
[2020-05-14] MEDS: CEFEPIME 0.5 GM in D5W 50 ML IV SCH (20:36)
[2020-05-15] VITALS (30 sets, daily range): BP systolic 70–183
[2020-05-15 05:59] LABS: BASOPHILS % (AUTO) 0.2 % (0.0-2.0); EOSINOPHILS # (AUTO) 0.1 K/uL (0.0-0.4); EOSINOPHILS % (AUTO) 0.8 % (0.0-4.0); LYMPHOCYTES % (AUTO) 6.6 % (20.5-51.5); MEAN CORPUSCULAR HEMOGLOBIN 33 pg (27-31); MONOCYTES # (AUTO) 0.4 K/uL (0.0-1.0); MONOCYTES % (AUTO) 2.7 % (1.7-9.3); NEUTROPHILS % (AUTO) 89.7 % (40.0-70.0); PLATELET COUNT (AUTO) 205 K/uL (130-430); RED BLOOD CELL COUNT(AUTO) 2.53 MIL/uL (4.2-6.2); WHITE BLOOD COUNT (AUTO) 14.5 K/uL (4.8-10.8)
[2020-05-15] MEDS ORDERED: ACETAMINOPHEN 650 MG/20.3 ML UDC ONE (06:36)
[2020-05-15] MEDS: ACETAMINOPHEN 650 MG/20.3 ML UDC GT PRN (06:39)
[2020-05-15] MEDS ORDERED: NOREPINEPHRINE 4 MG/4 ML VIAL IV ONE (07:37)
[2020-05-15] MEDS: NOREPINEPHRINE BITARTRATE 16 MG in D5W 234 ML IV PRN (07:58)
[2020-05-15 08:21] LABS: HEMATOCRIT 23.8 % (36-48); MEAN CORPUSCULAR HGB CONC 32 % (32-36); MEAN CORPUSCULAR VOLUME 89 fL (79.0-98.0)
[2020-05-15 08:22] LABS: HEMOGLOBIN 8.3 g/dL (12.0-16.0)
[2020-05-15] MEDS: METOPROLOL TARTRATE 50 MG TABLET NG SCH ×2 (09:00→22:05)
[2020-05-15] MEDS: methylPREDNISolone SOD SUCC 40 MG/ML VIAL IVP SCH ×2 (09:06→22:04)
[2020-05-15] MEDS: PANTOPRAZOLE SODIUM 40 MG/VIAL (PROTONIX) IVP SCH ×2 (09:11→22:04)
[2020-05-15] MEDS: metroNIDAZOLE 500 mg/NS 100 ML IV SCH ×2 (09:23→22:04)
[2020-05-15 09:28] LABS: ANION GAP 18 (5-15); CHLORIDE 97 mmol/L (98-107); GLUCOSE 113 mg/dL (70-99); POTASSIUM 3.8 mmol/L (3.5-5.1); SODIUM SERUM 138 mmol/L (136-145)
[2020-05-15 09:29] LABS: CALCIUM 7.3 mg/dL (8.4-11.0); TOTAL BILIRUBIN 0.9 mg/dL (0.0-1.0); UREA NITROGEN, BLOOD 82 mg/dL (8-21)
[2020-05-15 09:30] LABS: ALANINE AMINOTRANSFERASE 52 U/L (12-78); ALBUMIN 2.2 g/dL (3.4-4.8)
[2020-05-15] MEDS ORDERED: SODIUM BICARBONATE 8.4% JECT 50 MEQ/50 ML SYRINGE IVP ONE (09:30)
[2020-05-15] MEDS: INSULIN GLARGINE 100 UNITS/ML 10 ML VIAL SUBCUT SCH ×2 (09:34→22:03)
[2020-05-15 09:45] LABS: ASPARTATE AMINOTRANSFERASE 67 U/L (10-37)
[2020-05-15] MEDS: PROPOFOL DRIP 100 ML IV PRN ×2 (09:53→17:10)
[2020-05-15] MEDS ORDERED: HEPARIN SODIUM, PORCINE 10,000 UNITS/ 10 ML VIAL MC ONE ×2 (14:15)
[2020-05-15] MEDS ORDERED: HEPARIN SODIUM,PORCINE 5,000 UNITS/ML VIAL ONE (14:29)
[2020-05-15] MEDS: MICAFUNGIN SODIUM 50 MG in NS 100 ML IV SCH (16:05)
[2020-05-15] MEDS: CEFEPIME 0.5 GM in D5W 50 ML IV SCH (19:59)
[2020-05-15] MEDS ORDERED: GLUCOSE (DEXTROSE) ORAL GEL -Adults PO PRN (21:00)
[2020-05-15] MEDS ORDERED: DEXTROSE 50% JECT 50 ML DISP.SYRIN IVP PRN (21:00)
[2020-05-15] MEDS ORDERED: D5W 1,000 ML IV PRN (21:00)
[2020-05-15] MEDS ORDERED: hydrALAZINE HCL 20 MG/ML VIAL IVP PRN (21:00)
[2020-05-15] MEDS ORDERED: INSULIN LISPRO SLIDING SCALE 100 UNITS/ML VIAL (humaLOG) SUBCUT PRN (21:00)
[2020-05-15] MEDS: LORazepam 2 MG/ML VIAL IVP PRN (22:46)
[2020-05-15] MEDS ORDERED: LORazepam 2 MG/ML VIAL ONE (22:46)
[2020-05-16] VITALS (17 sets, daily range): BP systolic 90–128
[2020-05-16] MEDS: PROPOFOL DRIP 100 ML IV PRN ×3 (00:25→10:56)
[2020-05-16] MEDS: INSULIN REGULAR, HUMAN 100 UNITS/ML, 10 ML VIAL (humuLIN R) SUBCUT PRN ×2 (00:52→05:40)
[2020-05-16] MEDS: PANTOPRAZOLE SODIUM 40 MG/VIAL (PROTONIX) IVP SCH (08:20)
[2020-05-16] MEDS: methylPREDNISolone SOD SUCC 40 MG/ML VIAL IVP SCH (08:22)
[2020-05-16] MEDS: metroNIDAZOLE 500 mg/NS 100 ML IV SCH (08:23)
[2020-05-16] MEDS: METOPROLOL TARTRATE 50 MG TABLET NG SCH (08:24)
[2020-05-16] MEDS: INSULIN GLARGINE 100 UNITS/ML 10 ML VIAL SUBCUT SCH (08:26)
[2020-05-16] MEDS ORDERED: LORazepam 2 MG/ML VIAL ONE (09:17)
[2020-05-16] MEDS: LORazepam 2 MG/ML VIAL IVP PRN (09:21)
[2020-05-16] MEDS ORDERED: ALBUMIN HUMAN 25% 50 ML IV ONE ×2 (14:27→14:30)
[2020-05-16] MEDS ORDERED: NACL 0.9% 1,000 ML IV ONE (14:30)
[2020-05-16] MEDS: NOREPINEPHRINE BITARTRATE 16 MG in D5W 234 ML IV PRN (14:57)
== END 2020-05-16 15:30 | DRG 870 ==
LOC: SED 20:11 → SIC 23:19
PROVIDERS: ADMIT Family Medicine; ATTEND Family Medicine
PROC: XW13325 Transfusion of Convalescent Plasma (Nonautologous) into Peripheral Vein, Percutaneous Approach, New Technology Group 5 (ICD-10-PCS; 2020-04-15)
PROC: 5A0935A Assistance with Respiratory Ventilation, Less than 24 Consecutive Hours, High Flow/Velocity Cannula (ICD-10-PCS; 2020-04-18)
PROC: 3E0436Z Introduction of Nutritional Substance into Central Vein, Percutaneous Approach (ICD-10-PCS; 2020-04-20)
PROC: 5A0935A Assistance with Respiratory Ventilation, Less than 24 Consecutive Hours, High Flow/Velocity Cannula (ICD-10-PCS; 2020-04-20)
PROC: 5A09557 Assistance with Respiratory Ventilation, Greater than 96 Consecutive Hours, Continuous Positive Airway Pressure (ICD-10-PCS; 2020-04-21)
PROC: 05HY33Z Insertion of Infusion Device into Upper Vein, Percutaneous Approach (ICD-10-PCS; 2020-04-21)
PROC: 5A1955Z Respiratory Ventilation, Greater than 96 Consecutive Hours (ICD-10-PCS; principal; 2020-04-27)
PROC: 0BH17EZ Insertion of Endotracheal Airway into Trachea, Via Natural or Artificial Opening (ICD-10-PCS; 2020-04-27)
PROC: 5A1D70Z Performance of Urinary Filtration, Intermittent, Less than 6 Hours Per Day (ICD-10-PCS; 2020-04-28)
PROC: 02HV33Z Insertion of Infusion Device into Superior Vena Cava, Percutaneous Approach (ICD-10-PCS; 2020-04-28)
PROC: B548ZZA Ultrasonography of Superior Vena Cava, Guidance (ICD-10-PCS; 2020-04-28)
PROC: 5A1D70Z Performance of Urinary Filtration, Intermittent, Less than 6 Hours Per Day (ICD-10-PCS; 2020-04-29)
PROC: 5A1D70Z Performance of Urinary Filtration, Intermittent, Less than 6 Hours Per Day (ICD-10-PCS; 2020-05-01)
PROC: 5A1D70Z Performance of Urinary Filtration, Intermittent, Less than 6 Hours Per Day (ICD-10-PCS; 2020-05-02)
PROC: 30233N1 Transfusion of Nonautologous Red Blood Cells into Peripheral Vein, Percutaneous Approach (ICD-10-PCS; 2020-05-03)
PROC: 5A1D70Z Performance of Urinary Filtration, Intermittent, Less than 6 Hours Per Day (ICD-10-PCS; 2020-05-04)
PROC: 5A1D70Z Performance of Urinary Filtration, Intermittent, Less than 6 Hours Per Day (ICD-10-PCS; 2020-05-05)
PROC: 5A1D70Z Performance of Urinary Filtration, Intermittent, Less than 6 Hours Per Day (ICD-10-PCS; 2020-05-07)
PROC: 5A1D70Z Performance of Urinary Filtration, Intermittent, Less than 6 Hours Per Day (ICD-10-PCS; 2020-05-08)
PROC: 5A1D70Z Performance of Urinary Filtration, Intermittent, Less than 6 Hours Per Day (ICD-10-PCS; 2020-05-10)
PROC: 5A1D70Z Performance of Urinary Filtration, Intermittent, Less than 6 Hours Per Day (ICD-10-PCS; 2020-05-11)
PROC: 5A1D70Z Performance of Urinary Filtration, Intermittent, Less than 6 Hours Per Day (ICD-10-PCS; 2020-05-13)
DX: A41.9 Sepsis, unspecified organism (principal); J18.9 Pneumonia, unspecified organism; G93.41 Metabolic encephalopathy; J80 Acute respiratory distress syndrome; N17.0 Acute kidney failure with tubular necrosis; R65.21 Severe sepsis with septic shock; E87.2 Acidosis; D84.81 Immunodeficiency due to conditions classified elsewhere; Z99.11 Dependence on respirator [ventilator] status; E87.1 Hypo-osmolality and hyponatremia; N18.9 Chronic kidney disease, unspecified; Z96.641 Presence of right artificial hip joint; R74.01 Elevation of levels of liver transaminase levels; E87.5 Hyperkalemia; E83.39 Other disorders of phosphorus metabolism; J98.2 Interstitial emphysema; E88.09 Other disorders of plasma-protein metabolism, not elsewhere classified; M06.9 Rheumatoid arthritis, unspecified; F41.9 Anxiety disorder, unspecified; I12.9 Hypertensive chronic kidney disease with stage 1 through stage 4 chronic kidney disease, or unspecified chronic kidney disease; E11.22 Type 2 diabetes mellitus with diabetic chronic kidney disease; Z20.822 Contact with and (suspected) exposure to COVID-19
CPT/HCPCS: 36415; 36600; 71045; 71275; 76376; 80048; 80053; 82728; 82803-TC; 82962; 83605; 83615-TC; 83735-TC; 83880; 84100-TC; 84478-TC; 84484; 85007; 85018-TC; 85025; 85027; 85379; 85384-TC; 85610-TC; 85730-TC; 86140; 86886; 86900; 86901; 86920; 87040-TC; 87070-TC; 87081; 87205-TC; 90935; 90937; 93005; 94003; 94640; 94660; 94760; 96365; 96367; 96375; 99291; 99292; C9113; J0360; J0456; J0610; J0692; J0696; J1030; J1100; J1644; J1650; J1815; J1940; J2060; J2248; J2270; J2543; J2704; J3370; J3475; J3480; J3490; J7030; J7050; J7060; J7131; P9017; P9021; P9046; Q9967; U0003